=== PATIENT | female | born 1945 | race Caucasian/White ===

== ENCOUNTER → 2016-09-08 | Outpatient (CLI) | payer OTHER ==
[~2016-09-08] MED LIST: LXPUNK; ZCRUNK
[2016-09-08 10:25] LABS: BASO % 1.8 %; BASO ABS # 0.07 K/uL (0-0.2); COMPLETE YES; HEMATOCRIT 43.7 % (37-47); LYMPH % 26.1 %; LYMPH ABS # 1.03 K/uL (1.2-3.4); MEAN CELL VOLUME 84.7 fL (80-100); MEAN CORPUSCULAR HEMOGLOBIN 27.5 pg (25-34); MEAN CORPUSCULAR HGB CONC 32.5 g/dl (32-36); MEAN PLATELET VOLUME 11.3 fL (7.4-10.4); MONO % 12.7 %; NEUT % 58.4 %; PLATELET COUNT 261 K/uL (130-400); RED BLOOD COUNT 5.16 M/uL (4.2-5.4); WHITE BLOOD COUNT 3.94 K/uL (4.8-10.8)
[2016-09-08 10:45] LABS: ALT/SGPT 30 U/L (12-78); AST/SGOT 17 U/L (15-37); BLOOD UREA NITROGEN 8 mg/dl (7-18); BUN/CREATININE RATIO 11.2 (10-20); CALCIUM 9.5 mg/dl (8.5-10.1); CARBON DIOXIDE 28 mmol/L (21-32); CHLORIDE 105 mmol/L (98-107); CHOLESTEROL 146 mg/dl (0-200); CREATININE 0.68 mg/dl (0.60-1.20); GLUCOSE 95 mg/dl (70-99); POTASSIUM 3.8 mmol/L (3.5-5.1); SODIUM 139 mmol/L (136-145)
[2016-09-08 10:55] LABS: ALB/GLOB RATIO 1.2 (0.9-2); ALKALINE PHOSPHATASE 53 U/L (45-117); CHOLESTEROL/HDL RATIO 2.9; HDL CHOLESTEROL 50 mg/dl; LDL CHOLESTEROL CALCULATED 80 mg/dl; TRIGLYCERIDES 82 mg/dl (0-150); VERY LOW DENSITY LIPOPROT CALC 16 mg/dl
== END | disposition home or self-care (01) ==
LOC: C.LABBC 08:20
PROVIDERS: ATTEND Internal Medicine Geriatric Medicine
DX: K58.9 Irritable bowel syndrome, unspecified (principal); I10 Essential (primary) hypertension; M81.0 Age-related osteoporosis without current pathological fracture; E78.5 Hyperlipidemia, unspecified; R51 Headache

== ENCOUNTER → 2016-09-19 | Outpatient (CLI) | payer OTHER | END | disposition home or self-care (01) | LOC: C.MAMM 07:54 | PROVIDERS: ATTEND Internal Medicine Geriatric Medicine | DX: M81.0 Age-related osteoporosis without current pathological fracture (principal) ==

== ENCOUNTER → 2016-12-12 | Outpatient (CLI) | payer OTHER ==
--- NOTE | 2016-12-13 08:13 | MAMMOGRAPHY REPORT ---
BILATERAL DIGITAL SCREENING MAMMOGRAM WITH CAD: 12/12/2016 CLINICAL HISTORY: Routine screening. Patient has no complaints. TECHNIQUE: Bilateral CC, MLO and repeat right MLO views were obtained. Current study was also evalu ated with a Computer Aided Detection (CAD) system. COMPARISON: Comparison is made to exams dated: 12/08/2015 mammogram, 12/04/2014 mammogram, 12/03/2013 m ammogram, 12/02/2012 mammogram, 10/02/2011 mammogram, and 09/28/2010 mammogram - [facility] enter. BREAST COMPOSITION: There are scattered areas of fibroglandular density in both breasts. FINDINGS: No suspicious mass, architectural distortion or cluster of microcalcifications is seen. IMPRESSION: ACR BI-RADS CATEGORY 1: NEGATIVE There is no mammographic evidence of malignancy. A 1 year screening mammogram is recommended. The pa tient will receive written notification of the results. Approximately 10% of breast cancers are not detected with mammography. A negative mammographic report should not delay biopsy if a clinically suggestive mass is present. Antonina Crandall M.D. ay/:12/12/2016 15:56:27 Environmental [employer]: Sujata STILL(R)(M)(BD), [facility] letter sent: Normal 1/2 BI-RADS Code: ACR BI-RADS Category 1: Negative
== END | disposition home or self-care (01) ==
LOC: C.MAMM 09:39
PROVIDERS: ATTEND Internal Medicine Geriatric Medicine
DX: Z12.31 Encounter for screening mammogram for malignant neoplasm of breast (principal)

== ENCOUNTER → 2017-04-30 | Day surgery (SDC) | payer OTHER ==
[2017-04-19 07:50] VITALS: BMI 22.0
[~2017-04-30] VITALS: Ht 165.1 cm; Wt 61.4 kg
[~2017-04-30] MED LIST changes: +ALUMSUS2 PO; +DORZ2SOL20 OPB; +LATA0.5S OPB; +LIDOCAINE HCL 2% 2 ML VIAL (20MG/ML) ONE; +LISI20TA3 PO; -LXPUNK; +MULT-506 PO; +PROPOFOL IV EMULSION 10 MG/ML 20 ML VIAL IV ONE; +SENNTAB23 PO; +SIMV40TA4 PO; +SODIUM CHLORIDE 0.9% 500ML 500 ML IV ONE; +TPRSR/25 PO; -ZCRUNK
[2017-04-30 11:20] VITALS: Ht 165.1 cm; Wt 61.4 kg
--- NOTE | 2017-04-30 12:13 | Endo History and Physical ---
History & Physical Date of Service: Apr 30, 2017. Chief Complaint: CONSTIPATION AND RECTAL BLEEDING Referring Physician: DR Pj SHAY History of Present Illness 72 yo CF who presents for colonoscopy secondary to rectal bleeding. Past Surgical History Hx Cardiac Surgery: No Hx Internal Defibrillator: No Hx Pacemaker: No Hx Abdominal Surgery: Yes (TUBAL LIGATION) Hx of Implantable Prosthesis: No Hx Post-Op Nausea and Vomiting: No Hx Cancer Surgery: No Hx Thoracic Surgery: No Hx Orthopedic: No Hx Urinary Tract Surgery: No Family History None Social History Smoking Status: Never Smoker Hx Substance Use: No Hx Alcohol Use: No Allergies Coded Allergies: No Known Allergies (Unverified , 04/30/17) Current Medications Reported Home Medications Medications Dose Route/Sig Max Daily Dose Days Date Category Multivitamin (Multivitamins) Tab 1 Tab PO DAILY 04/19/17 Reported Stool Softener (Sennosides-Docusate Sodium) 1 Tab Tab 1 Tab PO BID 04/19/17 Reported Metoprolol Succinate ER (Metoprolol Succinate) 25 Mg Tabcr 1 Tab PO QAM 04/19/17 Reported Prinivil (Lisinopril) 20 Mg Tab 20 Mg PO QAM 04/19/17 Reported Zocor (Simvastatin) 40 Mg Tab 40 Mg PO QPM 04/19/17 Reported Xalatan 0.005% Oph Susan (Latanoprost) 0.005 % Susan 1 Drops OPB HS 04/19/17 Reported Cosopt Oph (Dorzolamide Hcl-Timolol Maleat) 1 Susan Susan 1 Drops OPB BID 04/19/17 Reported Vital Signs Weight (Kilograms): 61.36 Height (Feet): 5 Height (Inches): 5 Date Time Temp Pulse Resp B/P (MAP) Pulse Ox O2 Delivery O2 Flow Rate FiO2 04/30/17 11:28 36.4 72 18 205/84 (124) 100 Room Air Physical Exam General Appearance: WD/WN, no apparent distress Respiratory/Chest: Auscultation: breath sounds normal Cardiovascular: Heart Auscultation: RRR Abdomen: Bowel Sounds: normal Inspection & Palpation: soft, non-distended, no tenderness, guarding & rebound Assessment and Plan Assessment: 72 yo CF who presents for colonoscopy secondary to rectal bleeding. Plan: Proceed with colonoscopy.
--- NOTE | 2017-04-30 13:11 | GI REPORT ---
Procedure Date: 04/30/2017 12:37 PM Procedure: Colonoscopy Indications: Rectal bleeding Medicines: Monitored Anesthesia Care Complications: No immediate complications. Estimated Blood Loss: Estimated blood loss: none. Procedure: Pre-Anesthesia Assessment: - Prior to the procedure, a History and Physical was performed, and patient medications and allergies were reviewed. The patient's tolerance of previous anesthesia was also reviewed. The risks and benefits of the procedure and the sedation options and risks were discussed with the patient. All questions were answered, and informed consent was obtained. Prior Anticoagulants: The patient has taken no previous anticoagulant or antiplatelet agents. ASA Grade Assessment: II - A patient with mild systemic disease. After reviewing the risks and benefits, the patient was deemed in satisfactory condition to undergo the procedure. After I obtained informed consent, the scope was passed under direct vision. Throughout the procedure, the patient's blood pressure, pulse, and oxygen saturations were monitored continuously. The scope was introduced through the anus and advanced to the terminal ileum. The colonoscopy was performed without difficulty. The patient tolerated the procedure well. The quality of the bowel preparation was good. The ileocecal valve, appendiceal orifice, and rectum were photographed. Findings: The perianal and digital rectal examinations were normal. Multiple small-mouthed diverticula were found in the sigmoid colon. Non-bleeding internal hemorrhoids were found during retroflexion. The hemorrhoids were small. Impression: - Diverticulosis in the sigmoid colon. - Non-bleeding internal hemorrhoids. - No specimens collected. Recommendation: - Resume previous diet. - Continue present medications. - No repeat colonoscopy due to age and the absence of advanced adenomas. - Return to GI office as previously scheduled. Kurt Luna, 04/30/2017 1:10:59 PM This report has been signed electronically. Note Initiated On: 04/30/2017 12:37 PM I attest to the content of the Intraoperative Record and orders documented therein, exceptions below
[2017-04-30 13:36] VITALS: BP 163/68; PULSE 63; O2SAT 100
--- NOTE | 2017-04-30 13:45 | Anesthesiology Progress Note ---
Anesthesia Post Op Note Date & Time Apr 30, 2017 at 13:45 Vital Signs Pain Intensity: 0 Vital Signs Past 12 Hours Date Time Temp Pulse Resp B/P (MAP) Pulse Ox O2 Delivery O2 Flow Rate FiO2 04/30/17 13:36 63 20 163/68 (99) 100 Room Air 04/30/17 13:23 75 18 152/69 (96) 99 Room Air 04/30/17 13:06 72 12 119/58 (78) 100 Room Air 04/30/17 11:28 36.4 72 18 205/84 (124) 100 Room Air Notes Mental Status: alert / awake / arousable, participated in evaluation Pt Amnestic to Procedure: Yes Nausea / Vomiting: adequately controlled Pain: adequately controlled Airway Patency, RR, SpO2: stable & adequate BP & HR: stable & adequate Hydration State: stable & adequate Anesthetic Complications: no major complications apparent
--- NOTE | 2017-04-30 14:06 | Discharge Instructions ---
Endoscopy Patient Instructions Date / Procedure(s) Performed Apr 30, 2017. Colonoscopy Allergy Information Coded Allergies: No Known Allergies (Unverified , 04/30/17) Discharge Date / Findings Apr 30, 2017. Diverticulosis Internal hemorrhoids Medication Instructions Stopped Medication(s): MIRALAX AND STOOLSOFTNER OK to resume all medications today as prescribed Reported Home Medications Medications Dose Route/Sig Max Daily Dose Days Date Category Multivitamin (Multivitamins) Tab 1 Tab PO DAILY 04/19/17 Reported Stool Softener (Sennosides-Docusate Sodium) 1 Tab Tab 1 Tab PO BID 04/19/17 Reported Metoprolol Succinate ER (Metoprolol Succinate) 25 Mg Tabcr 1 Tab PO QAM 04/19/17 Reported Prinivil (Lisinopril) 20 Mg Tab 20 Mg PO QAM 04/19/17 Reported Zocor (Simvastatin) 40 Mg Tab 40 Mg PO QPM 04/19/17 Reported Xalatan 0.005% Oph Susan (Latanoprost) 0.005 % Susan 1 Drops OPB HS 04/19/17 Reported Cosopt Oph (Dorzolamide Hcl-Timolol Maleat) 1 Susan Susan 1 Drops OPB BID 04/19/17 Reported Provider Instructions Activity Restrictions - No exercising or heavy lifting for 24 hours. - Do not drink alcohol the day of the procedure. - Do not drive a car or operate machinery until the day after the procedure. - Do not make any important decisions or sign important papers in 24 hours after the procedure. Following Day: - Return to full activity which may include returning to work/school. Diet Start your diet with liquids and light foods (jello, soup, juice, toast). Then eat your usual diet if not nauseated. Treatment For Common After Affects For mild abdominal pain, bloating, or excessive gas: - Rest - Eat lightly - Lie on right side Follow-Up Information Follow-up with DR Pj SHAY as scheduled Anesthesia Information What You Should Know You have had a procedure that required some medicine to reduce anxiety and discomfort. This treatment is called moderate sedation. After receiving the treatment, you may be sleepy, but you will be able to breathe on your own. The effects of the treatment may last for several hours. Follow these instructions along with Activity/Diet recommendations noted above: * Do NOT do anything where dizziness or clumsiness would be dangerous. * Rest quietly at home today, then you can be up and about tomorrow. * Have a responsible person stay with you the rest of today. * You may have had an I.V. today. If so, you may take the dressing off later today. Recommendations Call your doctor if: * Trouble breathing * Continuous vomiting for more than 24 hours * Temperature above 101 degrees * Severe abdominal pain or bloating * Pain not relieved by pain medicine ordered * There is increased drainage or redness from any incision * A large amount of rectal bleeding greater than 2-3 tablespoons. (If you had a polyp/s removed or have hemorrhoids, a small amount of blood - from the rectum is to be expected.) * You have any unanswered questions or concerns. IN THE EVENT OF A SERIOUS EMERGENCY, GO TO THE NEAREST EMERGENCY ROOM Your discharge instructions were prepared by provider Kurt Luna. Patient Instructions Signature Page Yaquelin Haddad Patient (or Guardian) Signature/Date: I have read and understand the instructions given to me by my caregivers. Caregiver/RN/Doctor Signature/Date: The above-named patient and/or guardian has received patient instructions on this date. + Original Patient Signature Page (only) stays with chart. Please make copy for patient.
== END | disposition home or self-care (01) ==
LOC: C.GI 11:11
PROVIDERS: ATTEND Internal Medicine
DX: K62.5 Hemorrhage of anus and rectum (principal); K59.00 Constipation, unspecified; I10 Essential (primary) hypertension; K57.30 Diverticulosis of large intestine without perforation or abscess without bleeding; K64.8 Other hemorrhoids; Z98.51 Tubal ligation status; Z79.899 Other long term (current) drug therapy; Z90.89 Acquired absence of other organs

== ENCOUNTER → 2017-10-08 | Outpatient (CLI) | payer OTHER ==
[~2017-10-08] MED LIST changes: -ALUMSUS2 PO; -LIDOCAINE HCL 2% 2 ML VIAL (20MG/ML) ONE; -PROPOFOL IV EMULSION 10 MG/ML 20 ML VIAL IV ONE; -SODIUM CHLORIDE 0.9% 500ML 500 ML IV ONE
[2017-10-08 11:16] LABS: BASO % 1.1 %; BASO ABS # 0.05 K/uL (0-0.2); EOS % 2.5 %; EOS ABS # 0.11 K/uL (0-0.5); HEMOGLOBIN 14.5 g/dL (12.0-16.0); IG# 0.01 K/uL (0.00-0.02); LYMPH % 25.7 %; LYMPH ABS # 1.14 K/uL (1.2-3.4); MEAN CELL VOLUME 85.7 fL (80-100); MEAN CORPUSCULAR HEMOGLOBIN 27.6 pg (25-34); MEAN CORPUSCULAR HGB CONC 32.2 g/dl (32-36); MONO % 10.1 %; MONO ABS # 0.45 K/uL (0.11-0.59); NEUT % 60.4 %; NEUT ABS # 2.68 K/uL (1.4-6.5); PLATELET COUNT 278 K/uL (130-400); RED CELL DISTRIBUTION WIDTH CV 13.7 % (11.5-14.5); RED CELL DISTRIBUTION WIDTH SD 42.5 fL (36.4-46.3); WHITE BLOOD COUNT 4.44 K/uL (4.8-10.8)
[2017-10-08 11:40] LABS: ALBUMIN 3.8 gm/dl (3.4-5.0); ALKALINE PHOSPHATASE 69 U/L (45-117); ALT/SGPT 26 U/L (12-78); AST/SGOT 17 U/L (15-37); BLOOD UREA NITROGEN 7 mg/dl (7-18); CALCIUM 9.4 mg/dl (8.5-10.1); CARBON DIOXIDE 30 mmol/L (21-32); CHOLESTEROL 158 mg/dl (0-200); CREATININE 0.68 mg/dl (0.60-1.20); GLUCOSE 96 mg/dl (70-99); LDL CHOLESTEROL CALCULATED 87 mg/dl; POTASSIUM 4.1 mmol/L (3.5-5.1); SODIUM 137 mmol/L (136-145); TOTAL PROTEIN 7.2 gm/dl (6.4-8.2)
== END | disposition home or self-care (01) ==
LOC: C.LABBC 08:48
PROVIDERS: ATTEND Internal Medicine Geriatric Medicine
DX: I10 Essential (primary) hypertension (principal); M81.0 Age-related osteoporosis without current pathological fracture; E78.5 Hyperlipidemia, unspecified; R51 Headache

== ENCOUNTER 2023-09-02 21:38 | Inpatient (IN) ==
--- NOTE | 2023-09-02 22:09 | Emergency Department Note ---
Impression & Plan UTI (urinary tract infection), Mixed Alzheimer's and vascular dementia, Agitation ED Provider Note NAME: MARE HENDERSON AGE: 78 SEX: F : 1945 ARRIVES VIA: Ambulance INFORMANT: Patient ED PROVIDER(S): Que Sun DO CHIEF COMPLAINT: Agitation HPI: Patient is a 78-year-old female with a past medical history of mixed Alzheimer's and vascular dementia, hypertension, depression, anxiety and dyslipidemia that presents to the ER from [facility]. She was just discharged yesterday from [facility] to [facility]. They sent her in here to be evaluated as she had an episode of agitation. She never received her medications upon being discharged from [facility]. She presents again today as she had to be redirected out of the patient's room and was agitated. Upon presentation of EMS per EMS she got on the stretcher/litter without difficulty and came in without issues. Unfortunately unable to obtain history from patient. She denies any suicidal or homicidal ideations. ADDITIONAL HISTORY OBTAINED: Additional history obtained from EMS as described above Chronic Medical/Social Conditions Affecting Care: Per HPI PAST MEDICAL HISTORY:See Below PAST SURGICAL HISTORY:See Below FAMILY HISTORY:See Below SOCIAL HISTORY:See Below HOME MEDICATIONS:See Below ALLERGIES:See Below VITALS:See Below PHYSICAL EXAMINATION: GENERAL: Sitting up in bed, alert, well appearing, well nourished, no distress, non-toxic EYE EXAM: normal conjunctiva. PERRL and EOM's grossly intact. OROPHARYNX: no exudate, no erythema, lips, buccal mucosa, and tongue normal and mucous membranes are moist NECK: supple, no nuchal rigidity, no adenopathy, non-tender LUNGS: Clear to auscultation. Normal chest wall mechanics HEART: no murmurs, S1 normal and S2 normal ABDOMEN: abdomen soft, non-tender, normo-active bowel sounds, no masses, no rebound or guarding. UPPER EXTREMITIES: upper extremities are grossly normal. LOWER EXTREMITIES: No pitting edema. NEURO EXAM: Awake and alert oriented to person but not place or time moving all extremities nonfocal PSYCH: Denies any suicidal or homicidal ideations. MEDICAL DECISION MAKING: Patient is a 78-year-old female who presents ER for the above-stated complaint. They have been having significant difficulty with the care at [facility]. [facility] sent the patient here and notes that they are not taking the patient back. Per report from the patient's daughter they have been negligent and she does not want the patient going back to [facility]. IV was established blood work was obtained. Labs show no significant leukocytosis or anemia. BMP along with LFTs bilirubin TSH was unremarkable. UA did have leukocytes and white cells with only 6-10 epithelial cells. Patient was not agitated or disruptive throughout her entire time in the ER. She was given IV Rocephin. Discussed case with the hospitalist as well as our psychiatric care managers patient will be admitted for further placement from here. Consults/Care Managements Discussions: Per MDM Triage Nursing notes reviewed. Limited review of prior medical records performed Vital Signs: reviewed and remarkable for no significant abnormalities Differential diagnosis: Differential diagnoses includes but is not limited to toxic, metabolic, infectious, traumatic, cardiac, neurologic, hematologic, psychiatric and inflammatory etiologies. ER treatment provided: See below Diagnostics interpreted by me include EKG and cardiac monitoring as listed below: -ECG: none -Laboratory studies:Interpreted by me as stated above in MDM and shown below. Imaging studies: Xrays: As interpreted by me:none CTs show: none Procedures:none Critical Care: None Past Med/Surg History Problem List (Updated 09/03/23 @ 01:54 by Que Sun DO) Agitation (Acute) UTI (urinary tract infection) (Acute) Mixed Alzheimer's and vascular dementia (Acute) Hypertension (Acute) Depression Anxiety (Acute) Hypercalcemia Dyslipidemia (Acute) Osteoporosis (Acute) Medical History (Updated 09/03/23 @ 01:54 by Que Sun DO) Hx of cardiac pacemaker Tinnitus Positional vertigo Irritable bowel syndrome Internal hemorrhoids Headache Glaucoma Diverticulosis Surgical History History of colonoscopy 04/30/2017 - no further routine screening necessary due to age S/P tubal ligation Family History Father Coronary heart disease Dyslipidemia Stroke Congestive heart failure History of permanent cardiac pacemaker placement Mother Stroke Sister Parkinson disease Unknown Cerebral artery occlusion with cerebral infarction Aunt Parkinson disease Denies family history of Ovarian cancer Prostate cancer Breast cancer Lung cancer Colorectal cancer Social History Smoking Status: Never smoker Second Hand Exposure: No; Do You Dip or Chew Tobacco: No; Hx Alcohol Use: Yes Alcohol type: wine Alcohol Intake Frequency: Monthly or Less Hx Substance Use: No Preferred Language: Arabic Communication Ability: Effective Visual Impairment: Limited Hearing Ability: Normal Cleaner And Presser Required: No marital status: / Current Living Situation: Alone current occupational status: retired How many Children do You have: 2 Feels Safe at Home: Yes Childhood Exposure to Second-Hand Smoke: No caffeine: Yes (drinks coffee daily ) Dental Care, Regularly: Yes Physical Activity Frequency: 3-4 Times per Week Physical Activity Frequency Comment: walks Seatbelt Use: always Sunscreen Use: No (does not go outside) Allergies Allergies Allergy/AdvReac Type Severity Reaction Status Date / Time paroxetine [From Paxil] Allergy Verified 03/15/23 10:26 Home Meds Home Medications Medication Instructions Recorded Confirmed latanoprost 0.005 % eye drops 1 drops ophthalmic (eye) QPM 09/17/18 09/03/23 multivitamin (Daily Multi-Vitamin 1 tab PO DAILY 09/17/18 09/03/23 tablet) bisacodyl 10 mg rectal suppository 10 mg WI DAILY PRN Constipation 09/01/23 09/03/23 cyanocobalamin (vitamin B-12) 1,000 mcg PO DAILY 09/01/23 09/03/23 1,000 mcg tablet polyethylene glycol 3350 17 gram 17 g PO DAILY 09/01/23 09/03/23 oral powder packet Previous Rx's Medication Instructions Recorded simvastatin 40 mg tablet 40 mg PO DAILY #90 tabs 02/27/23 brimonidine 0.2 % eye drops 1 drp ophthalmic (eye) BID #5 mL 03/15/23 aspirin 81 mg tablet,delayed 81 mg PO DAILY #7 tabs 09/01/23 release (Adult Low Dose Aspirin) atorvastatin 20 mg tablet 20 mg PO HS #7 tabs 09/01/23 docusate sodium 100 mg capsule 100 mg PO BID #14 caps 09/01/23 donepezil 5 mg tablet 5 mg PO HS #7 tabs 09/01/23 escitalopram oxalate 10 mg tablet 10 mg PO DAILY #7 tabs 09/01/23 lisinopril 20 mg tablet 20 mg PO DAILY #7 tabs 09/01/23 metoprolol succinate 25 mg 25 mg PO DAILY #7 tabs 09/01/23 tablet,extended release 24 hr quetiapine 25 mg tablet 25 mg PO QDL #7 tabs 09/01/23 quetiapine 25 mg tablet (Seroquel) 25 mg PO BID PRN Anxiety #14 tabs 09/01/23 quetiapine 50 mg tablet 50 mg PO HS #7 tabs 09/01/23 trazodone 50 mg tablet 50 mg PO HS #7 tabs 09/01/23 Results & Data (ED) Vital Signs Vital Signs - 24 hr 09/02/23 21:52 09/02/23 21:52 Temperature 36.5 C 36.5 C Temperature Source Oral Oral Pulse Rate 83 Pulse Rate [Finger] 83 Pulse Rhythm Regular Pulse Rhythm [Finger] Regular Pulse Strength Normal Respiratory Rate 19 19 Respiratory Effort / Characteristics Non-Labored Non-Labored Respiratory Depth Normal Normal Respiratory Pattern Regular Blood Pressure 137/62 Blood Pressure [Left Arm] 137/62 Blood Pressure Mean 87 Blood Pressure Mean [Left Arm] 87 Pulse Oximetry 94 94 Oxygen Delivery Method Room Air Room Air Sepsis Recent Fever Within 48 Hours No Sepsis New/Unexplained Change in Mental Status No Sepsis Action Taken by Nursing No Action Required Laboratory Data 09/02/23 22:20 09/02/23 22:20 Lab Results 09/02/23 09/02/23 Range/Units 22:16 22:20 WBC 7.72 (4.8-10.8) K/ul RBC 4.96 (4.20-5.40) M/uL Hgb 13.7 (12.0-16.0) g/dl Hct 42.0 (37.0-47.0) % MCV 84.7 (80.0-100.0) fL MCH 27.6 (25.0-34.0) pg MCHC 32.6 (32.0-36.0) g/dL RDW Std Deviation 41.6 (36.4-46.3) fL RDW Coeff of Paulina 13.3 (11.5-14.5) % Plt Count 254 (130-400) K/uL MPV 10.0 (9.4-12.4) fL Immature Gran % (Auto) 0.4 % Neut % (Auto) 76.5 % Lymph % (Auto) 14.9 % Levy % (Auto) 7.0 % Eos % (Auto) 0.6 % Baso % (Auto) 0.6 % Neut # (Auto) 5.90 (1.40-6.50) K/uL Lymph # (Auto) 1.15 L (1.20-3.40) K/uL Levy # (Auto) 0.54 (0.11-0.59) K/uL Eos # (Auto) 0.05 (0.00-0.50) K/uL Baso # (Auto) 0.05 (0.00-0.20) K/uL Immature Gran # (Auto) 0.03 (0.01-0.20) K/uL Sodium 133 L (136-145) mmol/L Potassium 3.9 (3.5-5.1) mmol/L Chloride 105 (98-107) mmol/L Carbon Dioxide 23 (21-32) mmol/L Anion Gap 5 (3-11) BUN 16 (6-23) mg/dl Creatinine 0.71 (0.6-1.2) mg/dl Est Cr Clr Drug Dosing Not Reportable Est GFR ( Amer) 94.6 ml/min Est GFR (Non-Af Amer) 81.6 ml/min BUN/Creatinine Ratio 22.5 H (10-20) Glucose 153 H (70-99(Fasting)) mg/dl Calcium 9.5 (8.6-10.3) mg/dl Total Bilirubin 0.4 (0.2-1.0) mg/dl AST 17 (13-39) U/L ALT 17 (7-52) U/L Alkaline Phosphatase 71 (34-104) U/L Total Protein 6.2 (6.0-8.3) gm/dl Albumin 4.1 (3.4-5.0) gm/dl Globulin 2.1 L (2.5-4.0) gm/dl Albumin/Globulin Ratio 2.0 (0.9-2) TSH 1.846 (0.300-4.500) uIu/ml Urine Color Yellow Urine Appearance Clear (Clear) Urine pH 5.5 (4.5-7.5) Ur Specific [place] 1.026 (1.000-1.030) Urine Protein Trace H (Negative) Urine Glucose (UA) Negative (Negative) Urine Ketones Negative (Negative) Urine Blood Negative (Negative) Urine Nitrite Negative (Negative) Urine Bilirubin Negative (Negative) Urine Urobilinogen Negative (Negative) Ur Leukocyte Esterase 2+ H (Negative) Urine WBC (Auto) 21-50 H (0-5) /hpf Urine RBC (Auto) 0-2 (0-2) /hpf U Hyaline Cast (Auto) 3-5 H (0-2) /lpf U Epithel Cells (Auto) 6-10 H (0-2) /hpf Urine Bacteria (Auto) None Seen (None Seen) Salicylates < 3.0 L (3.0-30) mg/dl Urine Opiates Screen Neg (Neg) Ur Methadone, Qual Neg (Neg) Urine Fentanyl Screen Neg (Neg) Acetaminophen < 3 L (10-30) ug/ml Urine Barbiturates Neg (Neg) Ur Phencyclidine (PCP) Neg (Neg) U Amphetamin/Meth Scrn Neg (Neg) MDMA (Ecstasy) Screen Pos H (Neg) U Benzodiazepines Scrn Neg (Neg) Ur Cocaine Metabolite Neg (Neg) U Marijuana (THC) Screen Neg (Neg) Ethyl Alcohol mg/dL < 10.0 (<10.0) mg/dl Administered Medications Discontinued Medications Ceftriaxone Sodium (Rocephin) 2,000 mg in 50 mls @ 100 mls/hr IV NOW STA Stop: 09/03/23 00:56 Last Infusion: 09/03/23 01:16 Dose: Infused Documented By: Admin: 09/03/23 00:41 Dose: 100 mls/hr Documented By: MARI Discharge Plan Visit Data Chief Complaint: Mental Health Evaluation Stated Complaint: COMBATIVE, KICKING, BITING, WANTS PSYCH EVAL ED Provider: Que Sun Discharge Problem: UTI (urinary tract infection), Mixed Alzheimer's and vascular dementia, Agitation Forms Stand Alone Forms: My [facility], Suicide Prevention Resources Prescriptions Prescriptions: No Action simvastatin 40 mg tablet 40 mg PO DAILY Qty: 90 3RF brimonidine 0.2 % drops 1 drp ophthalmic (eye) BID Qty: 5 3RF Rx Instructions: one drop both eyes twice a day latanoprost 0.005 % drops 1 drops OP QPM Rx Instructions: one drop both eyes every evening multivitamin [Daily Multi-Vitamin] tablet 1 tab PO DAILY atorvastatin 20 mg Tablet 20 mg PO HS Qty: 7 0RF escitalopram oxalate 10 mg Tablet 10 mg PO DAILY Qty: 7 0RF aspirin [Adult Low Dose Aspirin] 81 mg Tablet,Delayed Release (Dr/Ec) 81 mg PO DAILY Qty: 7 0RF docusate sodium 100 mg Capsule 100 mg PO BID Qty: 14 0RF donepezil 5 mg Tablet 5 mg PO HS Qty: 7 0RF lisinopril 20 mg Tablet 20 mg PO DAILY Qty: 7 0RF quetiapine 25 mg Tablet 25 mg PO QDL Qty: 7 0RF quetiapine 50 mg Tablet 50 mg PO HS Qty: 7 0RF Rx Instructions: GIVE IN ADDITION TO 25 MG AT LUNCH quetiapine [Seroquel] 25 mg Tablet 25 mg PO BID PRN (Reason: Anxiety) Qty: 14 0RF trazodone 50 mg Tablet 50 mg PO HS Qty: 7 0RF metoprolol succinate 25 mg Tablet Extended Release 24 Hr 25 mg PO DAILY Qty: 7 0RF polyethylene glycol 3350 17 gram Powder In Packet 17 g PO DAILY cyanocobalamin (vitamin B-12) 1,000 mcg Tablet 1,000 mcg PO DAILY bisacodyl 10 mg Suppository 10 mg WI DAILY PRN (Reason: Constipation) Referrals Referrals: Benjamin Gomez DO [Primary Care Provider] - Discharge Problem: UTI (urinary tract infection) Qualifiers: Urinary tract infection type: acute cystitis Hematuria presence: without hematuria Qualified Code(s): N30.00 - Acute cystitis without hematuria
[2023-09-02 22:49] LABS: Basophils # (auto) 0.05 K/uL (0.00-0.20); Basophils % (auto) 0.6 %; Eosinophils # (auto) 0.05 K/uL (0.00-0.50); Eosinophils % (auto) 0.6 %; Hemoglobin 13.7 g/dl (12.0-16.0); Immature Granulocytes # (auto) 0.03 K/uL (0.01-0.20); Immature Granulocytes % (auto) 0.4 %; Lymphocytes # (auto) 1.15 K/uL (1.20-3.40); Lymphocytes % (auto) 14.9 %; Mean Corpuscular Hemoglobin 27.6 pg (25.0-34.0); Mean Corpuscular Hgb Conc 32.6 g/dL (32.0-36.0); Mean Corpuscular Volume 84.7 fL (80.0-100.0); Monocytes # (auto) 0.54 K/uL (0.11-0.59); Neutrophils % (auto) 76.5 %; Platelet Count 254 K/uL (130-400); RDW Coefficient of Variation 13.3 % (11.5-14.5); RDW Standard Deviation 41.6 fL (36.4-46.3); Red Blood Count 4.96 M/uL (4.20-5.40); White Blood Count 7.72 K/ul (4.8-10.8)
[2023-09-02 22:50] LABS: Appearance Urine Clear (Clear); Bacteria Urine Automated None Seen (None Seen); Bilirubin Urine Negative (Negative); Blood Urine Negative (Negative); Color Urine Yellow; Glucose Urine UA Negative (Negative); Ketones Urine Negative (Negative); Leukocyte Esterase Urine 2+ (Negative); Nitrite Urine Negative (Negative); Protein Urine Trace (Negative); RBC Urine Automated 0-2 /hpf (0-2); Specific Gravity Urine 1.026 (1.000-1.030); Urobilinogen Urine Negative (Negative); WBC Urine Automated 21-50 /hpf (0-5); pH Urine 5.5 (4.5-7.5)
[2023-09-02 22:56] LABS: Acetaminophen < 3 ug/ml (10-30); Salicylate < 3.0 mg/dl (3.0-30)
[2023-09-02 23:00] LABS: Alanine Aminotransferase 17 U/L (7-52); Albumin Level 4.1 gm/dl (3.4-5.0); Alkaline Phosphatase 71 U/L (34-104); Anion Gap 5 (3-11); Aspartate Aminotransferase 17 U/L (13-39); BUN Creatinine Ratio 22.5 (10-20); Bilirubin,Total 0.4 mg/dl (0.2-1.0); Blood Urea Nitrogen 16 mg/dl (6-23); Calcium 9.5 mg/dl (8.6-10.3); Carbon Dioxide 23 mmol/L (21-32); Chloride 105 mmol/L (98-107); Est GFR (African American) 94.6 ml/min; Est GFR (Non-African American) 81.6 ml/min; Globulin 2.1 gm/dl (2.5-4.0); Glucose 153 mg/dl (70-99(Fasting)); Potassium 3.9 mmol/L (3.5-5.1); Sodium 133 mmol/L (136-145); Total Protein 6.2 gm/dl (6.0-8.3)
[2023-09-02 23:15] LABS: Thyroid Stimulating Hormone 1.846 uIu/ml (0.300-4.500)
[2023-09-03 00:04] LABS: Amphetamines+Metham, Urine Neg (Neg); Barbiturates, Urine Neg (Neg); Benzodiazepine, Urine Neg (Neg); Cocaine, Urine Neg (Neg); Fentanyl, Urine Neg (Neg); MDMA (Ecstacy), Urine Pos (Neg); Marijuana, Urine Neg (Neg); Methadone, Urine Neg (Neg); Opiate, Urine Neg (Neg); Phencyclidine, Urine Neg (Neg)
[2023-09-03] MEDS: cefTRIAXone SODIUM 2,000 MG/50 ML BAG IV STA (00:41)
--- NOTE | 2023-09-03 00:49 | History & Physical Report ---
Date of Service September 03, 2023 Assessment & Plan (1) Agitation: (2) Mixed Alzheimer's and vascular dementia: (3) UTI (urinary tract infection): (4) Hypertension: (5) Depression: (6) Anxiety: Plan Agitation/mixed Alzheimer's and vascular dementia/depression/anxiety- Patient had been transferred from an inpatient facility in [place], to [facility] in [place]. Daughter reports that there was difficulty coordinating medications from [place] to local pharmacy to [facility] It is unclear at this time when patient received her last dose of medications, and ED reports that attempts to contact [facility] were not successful Patient reportedly was wandering into another patient's room at [facility], and when redirected, became agitated, and she was then sent to the ED for assessment In emergency department, patient is not agitated, resting comfortably, and it is reported that [facility] is unwilling to accept the patient back. [facility] She is resting comfortably at this point, and we will hold any of her listed psychiatric medications until assessed by psychiatry in the a.m., unless there is an acute change in her status overnight List of medications include: Seroquel, escitalopram, donepezil, and trazodone Urinary tract infection- Urine looks to be positive for infection Follow urine culture and sensitivity Continue ceftriaxone 2 g IV daily begun in the ED Hyperlipidemia- Continue atorvastatin Simvastatin is also listed on her medication list, but will not be continued History of Present Illness Chief Complaint: The patient is brought to the emergency department due to reported agitation when she was redirected from a patient's room at [facility], and daughter's c oncerns regarding need for a new placement facility Primary Care Provider: Benjamin Gomez DO The patient is a 78-year-old female with a past medical history including agitation, mixed Alzheimer's and vascular dementia, hypertension, depression, anxiety, dyslipidemia, glaucoma, B12 deficiency and osteoporosis. She had rece ntly been referred from a facility in [place], to [facility] in [place], and was noted as above to be agitated when she was redirected from wandering into another patient's room. Daughter's concerns are related to appropriateness of [facility] for her mother's level of care needed, and wishes for the patient to be placed at another facility. There was difficulty obtaining the patient's medications when she was transferred from [place] to [facility], and it is unclear at this time when she has taken her listed medications Allergies Allergy/AdvReac Type Severity Reaction Status Date / Time paroxetine [From Paxil] Allergy Verified 03/15/23 10:26 Home Medications Medication Instructions Recorded Confirmed Type latanoprost 0.005 % eye drops 1 drops ophthalmic (eye) QPM 09/17/18 09/03/23 History multivitamin (Daily Multi-Vitamin 1 tab PO DAILY 09/17/18 09/03/23 History tablet) simvastatin 40 mg tablet 40 mg PO DAILY #90 tabs 02/27/23 09/01/23 Rx brimonidine 0.2 % eye drops 1 drp ophthalmic (eye) BID #5 mL 03/15/23 09/03/23 Rx aspirin 81 mg tablet,delayed 81 mg PO DAILY #7 tabs 09/01/23 09/03/23 Rx release (Adult Low Dose Aspirin) atorvastatin 20 mg tablet 20 mg PO HS #7 tabs 09/01/23 09/03/23 Rx bisacodyl 10 mg rectal suppository 10 mg [place] DAILY PRN Constipation 09/01/23 09/03/23 History cyanocobalamin (vitamin B-12) 1,000 mcg PO DAILY 09/01/23 09/03/23 History 1,000 mcg tablet docusate sodium 100 mg capsule 100 mg PO BID #14 caps 09/01/23 09/03/23 Rx donepezil 5 mg tablet 5 mg PO HS #7 tabs 09/01/23 09/03/23 Rx escitalopram oxalate 10 mg tablet 10 mg PO DAILY #7 tabs 09/01/23 09/03/23 Rx lisinopril 20 mg tablet 20 mg PO DAILY #7 tabs 09/01/23 09/03/23 Rx metoprolol succinate 25 mg 25 mg PO DAILY #7 tabs 09/01/23 09/03/23 Rx tablet,extended release 24 hr polyethylene glycol 3350 17 gram 17 g PO DAILY 09/01/23 09/03/23 History oral powder packet quetiapine 25 mg tablet 25 mg PO QDL #7 tabs 09/01/23 09/03/23 Rx quetiapine 25 mg tablet (Seroquel) 25 mg PO BID PRN Anxiety #14 tabs 09/01/23 09/03/23 Rx quetiapine 50 mg tablet 50 mg PO HS #7 tabs 09/01/23 09/03/23 Rx trazodone 50 mg tablet 50 mg PO HS #7 tabs 09/01/23 09/03/23 Rx Past Med/Surg History Problem List (Updated 09/03/23 @ 01:54 by Que Sun DO) Agitation (Acute) UTI (urinary tract infection) (Acute) Mixed Alzheimer's and vascular dementia (Acute) Hypertension (Acute) Depression Anxiety (Acute) Hypercalcemia Dyslipidemia (Acute) Osteoporosis (Acute) Medical History (Updated 09/03/23 @ 01:54 by Que Sun DO) Hx of cardiac pacemaker Tinnitus Positional vertigo Irritable bowel syndrome Internal hemorrhoids Headache Glaucoma Diverticulosis Surgical History History of colonoscopy 04/30/2017 - no further routine screening necessary due to age S/P tubal ligation Family History Father Coronary heart disease Dyslipidemia Stroke Congestive heart failure History of permanent cardiac pacemaker placement Mother Stroke Sister Parkinson disease Unknown Cerebral artery occlusion with cerebral infarction Aunt Parkinson disease Denies family history of Ovarian cancer Prostate cancer Breast cancer Lung cancer Colorectal cancer Social History Smoking Status: Never smoker Second Hand Exposure: No; Do You Dip or Chew Tobacco: No; Hx Alcohol Use: Yes Alcohol type: wine Alcohol Intake Frequency: Monthly or Less Hx Substance Use: No Preferred Language: Romanian Communication Ability: Effective Visual Impairment: Limited Hearing Ability: Normal Biller Required: No marital status: / Current Living Situation: Alone current occupational status: retired How many Children do You have: 2 Feels Safe at Home: Yes Childhood Exposure to Second-Hand Smoke: No caffeine: Yes (drinks coffee daily ) Dental Care, Regularly: Yes Physical Activity Frequency: 3-4 Times per Week Physical Activity Frequency Comment: walks Seatbelt Use: always Sunscreen Use: No (does not go outside) Review of Systems Review of Systems: HPI and review of systems is provided by the patient's daughter, who is in the emergency department and by emergency department record review Physical Exam Physical Exam: The patient is awake, and attempts to respond to questions, well developed and well nourished, normocephalic and atraumatic, lying in bed and in no acute distress. HEENT--PERRL, EOMI, mucous membranes and oropharynx normal. Neck--supple. No JVD. No bruits. Thyroid normal, trachea midline, no adenopathy. Heart--normal S1 and S2. No murmurs, rubs or gallops. Lungs--clear bilaterally, no respiratory distress, no accessory muscle use. Abdomen--normal bowel sounds and soft. Nontender. Nondistended, no hernias or masses, no organomegaly. Extremities--no cyanosis or clubbing. No edema. There are good distal pulses b/l. Dermatologic--normal skin turgor, normal color, no abnormal lymph nodes, no rash. Neurologic--cranial nerves II through XII grossly intact. Rheumatologic--normal range of motion. Psychiatric--normal affect. Results & Data Results & Data Vital Signs (Past 12 Hours) Vital Signs Temp Pulse Pulse Resp BP BP Pulse Ox 09/02/23 21:52 36.5 C 83 19 137/62 94 09/02/23 21:52 36.5 C 83 19 137/62 94 O2 Del Method 09/02/23 21:52 Room Air 09/02/23 21:52 Room Air Laboratory Results Laboratory Results WBC 7.72 K/ul (4.8-10.8) 09/02/23 22:20 RBC 4.96 M/uL (4.20-5.40) 09/02/23 22:20 Hgb 13.7 g/dl (12.0-16.0) 09/02/23 22:20 Hct 42.0 % (37.0-47.0) 09/02/23 22:20 MCV 84.7 fL (80.0-100.0) 09/02/23 22:20 MCH 27.6 pg (25.0-34.0) 09/02/23 22:20 MCHC 32.6 g/dL (32.0-36.0) 09/02/23 22:20 RDW Std Deviation 41.6 fL (36.4-46.3) 09/02/23 22:20 RDW Coeff of Paulina 13.3 % (11.5-14.5) 09/02/23 22:20 Plt Count 254 K/uL (130-400) 09/02/23 22:20 MPV 10.0 fL (9.4-12.4) 09/02/23 22:20 Immature Gran % (Auto) 0.4 % 09/02/23 22:20 Neut % (Auto) 76.5 % 09/02/23 22:20 Lymph % (Auto) 14.9 % 09/02/23 22:20 [place] % (Auto) 7.0 % 09/02/23 22:20 Eos % (Auto) 0.6 % 09/02/23 22:20 Baso % (Auto) 0.6 % 09/02/23 22:20 Neut # (Auto) 5.90 K/uL (1.40-6.50) 09/02/23 22:20 Lymph # (Auto) 1.15 K/uL (1.20-3.40) L 09/02/23 22:20 [place] # (Auto) 0.54 K/uL (0.11-0.59) 09/02/23 22:20 Eos # (Auto) 0.05 K/uL (0.00-0.50) 09/02/23 22:20 Baso # (Auto) 0.05 K/uL (0.00-0.20) 09/02/23 22:20 Immature Gran # (Auto) 0.03 K/uL (0.01-0.20) 09/02/23 22:20 Sodium 133 mmol/L (136-145) L 09/02/23 22:20 Potassium 3.9 mmol/L (3.5-5.1) 09/02/23 22:20 Chloride 105 mmol/L (98-107) 09/02/23 22:20 Carbon Dioxide 23 mmol/L (21-32) 09/02/23 22:20 Anion Gap 5 (3-11) 09/02/23 22:20 BUN 16 mg/dl (6-23) 09/02/23 22:20 Creatinine 0.71 mg/dl (0.6-1.2) 09/02/23 22:20 Est Cr Clr Drug Dosing Not Reportable 09/02/23 22:20 Est GFR ( Amer) 94.6 ml/min 09/02/23 22:20 Est GFR (Non-Af Amer) 81.6 ml/min 09/02/23 22:20 BUN/Creatinine Ratio 22.5 (10-20) H 09/02/23 22:20 Glucose 153 mg/dl (70-99(Fasting)) H 09/02/23 22:20 Calcium 9.5 mg/dl (8.6-10.3) 09/02/23 22:20 Total Bilirubin 0.4 mg/dl (0.2-1.0) 09/02/23 22:20 AST 17 U/L (13-39) 09/02/23 22:20 ALT 17 U/L (7-52) 09/02/23 22:20 Alkaline Phosphatase 71 U/L (34-104) 09/02/23 22:20 Total Protein 6.2 gm/dl (6.0-8.3) 09/02/23 22:20 Albumin 4.1 gm/dl (3.4-5.0) 09/02/23 22:20 Globulin 2.1 gm/dl (2.5-4.0) L 09/02/23 22:20 Albumin/Globulin Ratio 2.0 (0.9-2) 09/02/23 22:20 TSH 1.846 uIu/ml (0.300-4.500) 09/02/23 22:20 Urine Color Yellow 09/02/23 22:16 Urine Appearance Clear (Clear) 09/02/23 22:16 Urine pH 5.5 (4.5-7.5) 09/02/23 22:16 Ur Specific [place] 1.026 (1.000-1.030) 09/02/23 22:16 Urine Protein Trace (Negative) H 09/02/23 22:16 Urine Glucose (UA) Negative (Negative) 09/02/23 22:16 Urine Ketones Negative (Negative) 09/02/23 22:16 Urine Blood Negative (Negative) 09/02/23 22:16 Urine Nitrite Negative (Negative) 09/02/23 22:16 Urine Bilirubin Negative (Negative) 09/02/23 22:16 Urine Urobilinogen Negative (Negative) 09/02/23 22:16 Ur Leukocyte Esterase 2+ (Negative) H 09/02/23 22:16 Urine WBC (Auto) 21-50 /hpf (0-5) H 09/02/23 22:16 Urine RBC (Auto) 0-2 /hpf (0-2) 09/02/23 22:16 U Hyaline Cast (Auto) 3-5 /lpf (0-2) H 09/02/23 22:16 U Epithel Cells (Auto) 6-10 /hpf (0-2) H 09/02/23 22:16 Urine Bacteria (Auto) None Seen (None Seen) 09/02/23 22:16 Salicylates < 3.0 mg/dl (3.0-30) L 09/02/23 22:20 Urine Opiates Screen Neg (Neg) 09/02/23 22:16 Ur Methadone, Qual Neg (Neg) 09/02/23 22:16 Urine Fentanyl Screen Neg (Neg) 09/02/23 22:16 Acetaminophen < 3 ug/ml (10-30) L 09/02/23 22:20 Urine Barbiturates Neg (Neg) 09/02/23 22:16 Ur Phencyclidine (PCP) Neg (Neg) 09/02/23 22:16 U Amphetamin/Meth Scrn Neg (Neg) 09/02/23 22:16 MDMA (Ecstasy) Screen Pos (Neg) H 09/02/23 22:16 U Benzodiazepines Scrn Neg (Neg) 09/02/23 22:16 Ur Cocaine Metabolite Neg (Neg) 09/02/23 22:16 U Marijuana (THC) Screen Neg (Neg) 09/02/23 22:16 Ethyl Alcohol mg/dL < 10.0 mg/dl (<10.0) 09/02/23 22:20 Code Status & VTE Plan Code Status Full code VTE Prophylaxis Plan VTE Prophylaxis will be ordered: Yes PG Care Time/CCT Total # of Minutes Spent Total Time Spent with Patient: Total time spent is greater than 50% in coordination of care (as documented) at patient's floor/unit and/or counseling patient: Coding Level of Care Code 03531 INT INP/OBS CARE 3/75MIN Diagnoses Agitation R45.1 Mixed Alzheimer's and vascular dementia G30.9; F01.50; F02.80 UTI (urinary tract infection) N30.00 Hematuria presence: without hematuria Urinary tract infection type: acute cystitis Essential hypertension I10 Hypertension type: essential hypertension Depression F32.9 Anxiety F41.9 (3) UTI (urinary tract infection) Hematuria presence: without hematuria Urinary tract infection type: acute cystitis Qualified Code(s): N30.00 - Acute cystitis without hematuria (4) Hypertension Hypertension type: essential hypertension Qualified Code(s): I10 - Essential (primary) hypertension
[2023-09-03] MEDS ORDERED: POLYETHYLENE (MIRALAX) 17 GM PACK PO PRN (03:01)
[2023-09-03] MEDS ORDERED: bisacodyL 10 MG SUPP PR PRN (03:01)
[2023-09-03] MEDS: DOCUSATE SODIUM 100 MG CAP PO SCH (09:16)
[2023-09-03] MEDS: METOPROLOL SUCC 25MG EXT REL TAB PO SCH (09:16)
[2023-09-03] MEDS: MULTIVITAMIN TAB PO SCH (09:16)
[2023-09-03] MEDS: CYANOCOBALAMIN (B-12) 500 MCG TABLET PO SCH (09:16)
[2023-09-03] MEDS: ASPIRIN 81 MG ECTAB PO SCH (09:16)
[2023-09-03] MEDS: BRIMONIDINE TARTRATE 0.2% 5ML OPB SCH (12:07)
--- NOTE | 2023-09-03 13:31 | Psychiatric Consultation ---
Date of Consultation September 03, 2023 Impression / Recommendations Impression 78 yo woman with a history of Alzheimer's and vascular dementia with increased agitation after a mess-up with her medications and transition from geriatric inpatient psychiatry at [facility] to a new personal assisted, [facility], three days ago and found to have UTI. Diagnostically consistent with possible encephalopathy/delirium from UTI superimposed on dementia with behavioral disturbance which worsened in context of missing her medications and transitioning to a new environment. Goal in dementia is to avoid medication management of behaviors if possible by maximizing non-pharmacologic strategies for behavioral management. However, given worsening agitation/aggression and previous improvement with antipsychotic medications reasonable to continue this. Note all antipsychotic medications c arry black box warning for increased risk of all-cause mortality in setting of dementia. Overall, I spent a total of 45 minutes with this case including review of chart records, review of labwork, direct evaluation of the patient at bedside, counseling the patient, discussion of the patient with the Nurse and with the hospitalist provider, discussion with the psychiatric liason during clinical r ounds and documentation in the electronic health record. (1) Mixed Alzheimer's and vascular dementia: (2) UTI (urinary tract infection): Hematuria presence: without hematuria Urinary tract infection type: acute cystitis Qualified Code(s): N30.00 - Acute cystitis without hematuria (3) Agitation: Plan -1-on-1 as needed -Continue medical workup to rule out and treat any underlying causes contributing to potential delirium, avoid or limit use of deliriogenic medications (benzodiazepines, opioids, anticholinergics) -Continue with delirium prevention measures: raising blinds during the day, closing at night, frequent re-orientation, contact with family/friends, explaining procedures/nursing care measures prior to physical contact, correct any hearing and visual impairments -Would restart prior to admission psychiatric medications: * escitalopram 10mg daily * Seroquel 25mg qafternoon and 50mg qdinner * Seroquel 25mg BID po prn for agitation/paranoia -Would discontinue trazodone 50mg HS for now given sedating effects of Seroquel at HS -For behavioral emergency: olanzapine 2.5 mg IM x 1 (DO NOT exceed 10mg per 24 hours, check EKG if IM dose required, NEVER co-administer with IM or IV benzodiazepines). Psych History Identifying Data 78 yo woman with a history of mixed Alzheimer's and vascular dementia, depression and anxiety admitted medically for agitation and UTI. Psychiatry consulted for "agitation reported by [facility]". Chief Complaint "Just trying to find out what's going on". History of Present Illness Yaquelin was brought to the hospital after reportedly wandering into another resident's room at [facility], the personal assisted where she has been living for the last two days. Reportedly became agitated when redirected after wandering. She was recently admitted to the geriatric psychiatry unit at [facility] for medication adjustments for 3 weeks after behavioral outburst at her previous personal assisted with improvement per daughter's report before being discharged to [facility] on 08/31/2023. She was also seen in the ED on 09/01/2023 after staff reported she had been irritable and more aggression but was also without her medication due to mixup with the mail order pharmacy. On arrival to hospital last evening she was noted to have UTI. Since admission last night there have been no agitated behaviors. In reviewing her psychiatric medications she has been prescribed trazodone, escitalopram, Seroquel and donepezil recently. Per admission H&P unclear if she has been getting these medications consistently. Allergies Allergy/AdvReac Type Severity Reaction Status Date / Time paroxetine [From Paxil] Allergy Verified 03/15/23 10:26 Home Medications Medication Instructions Recorded Confirmed Type latanoprost 0.005 % eye drops 1 drops ophthalmic (eye) QPM 09/17/18 09/03/23 History multivitamin (Daily Multi-Vitamin 1 tab PO DAILY 09/17/18 09/03/23 History tablet) simvastatin 40 mg tablet 40 mg PO DAILY #90 tabs 02/27/23 09/01/23 Rx brimonidine 0.2 % eye drops 1 drp ophthalmic (eye) BID #5 mL 03/15/23 09/03/23 Rx aspirin 81 mg tablet,delayed 81 mg PO DAILY #7 tabs 09/01/23 09/03/23 Rx release (Adult Low Dose Aspirin) atorvastatin 20 mg tablet 20 mg PO HS #7 tabs 09/01/23 09/03/23 Rx bisacodyl 10 mg rectal suppository 10 mg [place] DAILY PRN Constipation 09/01/23 09/03/23 History cyanocobalamin (vitamin B-12) 1,000 mcg PO DAILY 09/01/23 09/03/23 History 1,000 mcg tablet docusate sodium 100 mg capsule 100 mg PO BID #14 caps 09/01/23 09/03/23 Rx donepezil 5 mg tablet 5 mg PO HS #7 tabs 09/01/23 09/03/23 Rx escitalopram oxalate 10 mg tablet 10 mg PO DAILY #7 tabs 09/01/23 09/03/23 Rx lisinopril 20 mg tablet 20 mg PO DAILY #7 tabs 09/01/23 09/03/23 Rx metoprolol succinate 25 mg 25 mg PO DAILY #7 tabs 09/01/23 09/03/23 Rx tablet,extended release 24 hr polyethylene glycol 3350 17 gram 17 g PO DAILY 09/01/23 09/03/23 History oral powder packet quetiapine 25 mg tablet 25 mg PO QDL #7 tabs 09/01/23 09/03/23 Rx quetiapine 25 mg tablet (Seroquel) 25 mg PO BID PRN Anxiety #14 tabs 09/01/23 09/03/23 Rx quetiapine 50 mg tablet 50 mg PO HS #7 tabs 09/01/23 09/03/23 Rx trazodone 50 mg tablet 50 mg PO HS #7 tabs 09/01/23 09/03/23 Rx Patient History Medical History Hx of cardiac pacemaker Tinnitus Positional vertigo Irritable bowel syndrome Internal hemorrhoids Headache Glaucoma Diverticulosis Surgical History History of colonoscopy 04/30/2017 - no further routine screening necessary due to age S/P tubal ligation Family History Father Coronary heart disease Dyslipidemia Stroke Congestive heart failure History of permanent cardiac pacemaker placement Mother , age 83 Stroke Sister Parkinson disease Unknown Cerebral artery occlusion with cerebral infarction Aunt Parkinson disease Denies family history of Ovarian cancer Prostate cancer Breast cancer Lung cancer Colorectal cancer Social History Smoking Status: Never smoker Second Hand Exposure: No; Do You Dip or Chew Tobacco: No; Hx Alcohol Use: No Hx Substance Use: No Preferred Language: Ukrainian Communication Ability: Effective Visual Impairment: Limited Hearing Ability: Normal Life Trainer Required: No Beliefs That Will Affect Care: None marital status: / Current Living Situation: Alone Current Living Situation Comment: Lives at [facility]. current occupational status: retired How many Children do You have: 2 Other Information That Helps Us Care for You: No Feels Safe at Home: Yes Safety Concerns: Feels Safe At This Time Childhood Exposure to Second-Hand Smoke: No caffeine: Yes (drinks coffee daily ) Dental Care, Regularly: Yes Physical Activity Frequency: 3-4 Times per Week Physical Activity Frequency Comment: walks Seatbelt Use: always Sunscreen Use: No (does not go outside) Assistive Devices: Hospital Bed Physical Exam Psychiatric: Orientation: alert and oriented to person; + not oriented to place and + not oriented to time Eye Contact: good eye contact Speech: normal rate/rhythm/volume of speech (brief, some word finding difficulty at times) Affect: euthymic affect Mood: no depressed mood and no anxious mood Thought Process: + looseness of associations Insight: + severely impaired insight Judgment: + limited judgement Vital Signs (Past 24 Hours): Last Vital Signs Temp 36.6 C 09/03/23 07:21 Pulse 73 09/03/23 07:21 Resp 16 09/03/23 07:21 BP 143/59 H 09/03/23 07:21 Pulse Ox 94 09/03/23 07:21 O2 Del Method Room Air 09/03/23 07:57 Results & Data (PSY) Medications Administered Aspirin (Aspirin 81 Mg Ectab) 81 mg PO DAILY [facility] Stop: 10/03/23 08:59 Last Admin: 09/03/23 09:16 Dose: 81 mg Documented By: WERNER Brimonidine Tartrate (Brimonidine Tartrate 0.2% 5ml) 1 drops OPB BID NAYELI Stop: 10/03/23 08:59 Last Admin: 09/03/23 12:07 Dose: 1 drops Documented By: TIFFANI Cyanocobalamin (Cyanocobalamin (B-12) 500 Mcg Tablet) 1,000 mcg PO DAILY NAYELI Stop: 10/03/23 08:59 Last Admin: 09/03/23 09:16 Dose: 1,000 mcg Documented By: WERNER Docusate Sodium (Docusate Sodium 100 Mg Cap) 100 mg PO BID NAYELI Stop: 10/03/23 08:59 Last Admin: 09/03/23 09:16 Dose: 100 mg Documented By: WERNER Metoprolol Succinate (Metoprolol Succ 25mg Ext Rel Tab) 25 mg PO DAILY NAYELI Stop: 10/03/23 08:59 Last Admin: 09/03/23 09:16 Dose: 25 mg Documented By: WERNER Multivitamins (Multivitamin Tab) 1 tab PO DAILY [facility] Stop: 10/03/23 08:59 Last Admin: 09/03/23 09:16 Dose: 1 tab Documented By: WERNER Coding Level of Care Code 37070 IN/OBS CONSULT LVL 3,45M Diagnoses Mixed Alzheimer's and vascular dementia G30.9; F01.50; F02.80 UTI (urinary tract infection) N30.00 Hematuria presence: without hematuria Urinary tract infection type: acute cystitis Agitation R45.1
--- NOTE | 2023-09-03 19:41 | Hospitalist Progress Note ---
Date of Service September 03, 2023 Assessment & Plan (1) Mixed Alzheimer's and vascular dementia: Plan: Patient reportedly was wandering into another patient's room at [facility], and when redirected, became agitated, and she was then sent to the ED for assessment On presentation to ED, patient was not agitated, resting comfortably, and it is reported that [facility] is unwilling to accept the patient back. Psychiatry consulted Continue one-to-one observation as needed Continue medical workup to rule out and treat any underlying causes contributing to potential delirium, avoid or limit use of deliriogenic medications (benzodiazepines, opioids, anticholinergics) Continue with delirium prevention measures: raising blinds during the day, closing at night, frequent re-orientation, contact with family/friends, explaining procedures/nursing care measures prior to physical contact, correct any hearing and visual impairments Continue escitalopram 10mg daily Continue Seroquel 25mg qafternoon and 50mg qdinner Continue Seroquel 25mg BID po prn for agitation/paranoia Discontinue trazodone 50mg HS for now given sedating effects of Seroquel at HS For behavioral emergency: olanzapine 2.5 mg IM x 1 (DO NOT exceed 10mg per 24 hours, check EKG if IM dose required, NEVER co-administer with IM or IV benzodiazepines) (2) UTI (urinary tract infection): Plan: UA positive on admission Urine culture pending, continue to follow Continue ceftriaxone 2 g IV daily until urine culture sensitivities result Plan Ordered escitalopram, Seroquel, olanzapine Discontinue trazodone Reviewed psychiatry consult Chronic Stable Conditions: Hypertension - continue metoprolol Hyperlipidemia - continue atorvastatin CODE STATUS: Full code Admission and Anticipated Discharge Date Admission Date: September 03, 2023 Supervising Physician Co-Signing Physician Notes Attending Attestation - Chart reviewed, care plan d/w COLE Jain. I agree w/ the villagran components of her documentation. Migel Hill MD Subjective Patient seen and evaluated at bedside with one-to-one nurse in room. Obtaining any review of systems is extremely difficult due to patient's confusion from mixed Alzheimer's and vascular dementia. Patient appeared comfortable in bed. She had no complaints. Physical Exam Physical Exam: General: No acute distress, nondiaphoretic, well-developed, well-nourished. Skin: The skin was without rashes, erythema, edema, or bruising. Cardiac: Regular rate and rhythm without murmurs gallops or rubs. Pulm: Clear to auscultation bilaterally without wheezes, rales or rhonchi. No retractions or accessory muscle use. Abdominal: Soft, nontender, nondistended. Bowel sounds present. Neuro: Alert and oriented to person. Loose thought process. Severely impaired insight. Limited judgment. No focal neurological deficits. Results & Data Results & Data Vital Signs (Past 12 Hours) Vital Signs Temp Pulse Resp BP Pulse Ox O2 Del Method 09/03/23 15:58 37.0 C 70 16 134/68 96 Room Air 09/03/23 07:57 Room Air Laboratory Results Reviewed CBC Reviewed CMP Reviewed urine culture PG Care Time/CCT Total # of Minutes Spent Total Time Spent with Patient: Total time spent is greater than 50% in coordination of care (as documented) at patient's floor/unit and/or counseling patient: Coding Level of Care Code 77286 SUB INP/OBS CARE 3/50MIN Diagnoses Mixed Alzheimer's and vascular dementia G30.9; F01.50; F02.80 UTI (urinary tract infection) N30.00 Hematuria presence: without hematuria Urinary tract infection type: acute cystitis (2) UTI (urinary tract infection) Hematuria presence: without hematuria Urinary tract infection type: acute cystitis Qualified Code(s): N30.00 - Acute cystitis without hematuria
[2023-09-03] MEDS: ATORVASTATIN 20 MG TAB PO SCH (21:29)
[2023-09-03] MEDS: LATANOPROST 0.005% OP SOLN 2.5 ML BTL OPB SCH (21:30)
[2023-09-03] MEDS: QUEtiapine FUMARATE 25 MG TABLET PO SCH (21:31)
[2023-09-03] MEDS: cefTRIAXone SODIUM 2,000 MG/50 ML BAG IV SCH (21:34)
[2023-09-04 08:30] LABS: Hematocrit (blood only) 41.2 % (37.0-47.0); Hemoglobin 13.6 g/dl (12.0-16.0); Mean Corpuscular Volume 84.9 fL (80.0-100.0); Mean Platelet Volume 9.8 fL (9.4-12.4); Platelet Count 242 K/uL (130-400); RDW Coefficient of Variation 13.2 % (11.5-14.5); RDW Standard Deviation 41.1 fL (36.4-46.3); Red Blood Count 4.85 M/uL (4.20-5.40); White Blood Count 5.51 K/ul (4.8-10.8)
[2023-09-04] MEDS: ESCITALOPRAM OXALATE 10 MG TAB PO SCH (08:46)
[2023-09-04 08:47] LABS: BUN Creatinine Ratio 11.7 (10-20); Calcium 9.3 mg/dl (8.6-10.3); Creatinine Clr Calc Pharmacy 72.3 ml/min; Est GFR (African American) 101.2 ml/min; Est GFR (Non-African American) 87.3 ml/min; Potassium 4.4 mmol/L (3.5-5.1)
[2023-09-04] MEDS: ACETAMINOPHEN 325 MG TAB PO PRN (10:24)
[2023-09-04] MEDS: QUEtiapine FUMARATE 25 MG TABLET PO SCH (12:29)
--- NOTE | 2023-09-04 17:30 | Hospitalist Progress Note ---
Date of Service September 04, 2023 Assessment & Plan (1) Mixed Alzheimer's and vascular dementia: Plan: Patient reportedly was wandering into another patient's room at [facility], and when redirected, became agitated, and she was then sent to the ED for assessment - On presentation to ED, patient was not agitated, resting comfortably, and it is reported that [facility] is unwilling to accept the patient back. Psychiatry consulted - Continue one-to-one observation as needed - Continue medical workup to rule out and treat any underlying causes contributing to potential delirium, avoid or limit use of deliriogenic medications (benzodiazepines, opioids, anticholinergics) - Continue with delirium prevention measures: raising blinds during the day, closing at night, frequent re-orientation, contact with family/friends, explaining procedures/nursing care measures prior to physical contact, correct any hearing and visual impairments Continue escitalopram 10mg daily Continue Seroquel 25mg qafternoon and 50mg qdinner Continue Seroquel 25mg BID po prn for agitation/paranoia Discontinued trazodone 50mg HS for now given sedating effects of Seroquel at HS For behavioral emergency: olanzapine 2.5 mg IM x 1 (DO NOT exceed 10mg per 24 hours, check EKG if IM dose required, NEVER co-administer with IM or IV benzodiazepines) Referral has been made to [facility] for placement upon discharge (2) UTI (urinary tract infection): Plan: UA positive on admission Urine culture pending, continue to follow Continue ceftriaxone 2 g IV daily until urine culture sensitivities result Plan Updated patient's daughter, Roseann, via phone call Discussed discharge planning with case managementreferral has been made to [facility] Chronic Stable Conditions: Hypertension - continue metoprolol Hyperlipidemia - continue atorvastatin CODE STATUS: Full code Admission and Anticipated Discharge Date Admission Date: September 03, 2023 Subjective Patient seen and evaluated at bedside with one-to-one nurse in the room. No review of systems can be obtained as the patient is extremely confused from mixed Alzheimer's and vascular dementia. Nursing reported that blood was noted in the patient's brief. With assistance from EVENT SECURITY OFFICER, I did check the patient's brief and a scant amount of possibly blood-tinged discharge was noted. Nursing denies any blood in patient's urine or stool to their knowledge. Will continue to monitor, but no immediate intervention is required at this time. Physical Exam Physical Exam: General: No acute distress, nondiaphoretic, well-developed, well-nourished. Skin: The skin was without rashes, erythema, edema, or bruising. Cardiac: Regular rate and rhythm without murmurs gallops or rubs. Pulm: Clear to auscultation bilaterally without wheezes, rales or rhonchi. No retractions or accessory muscle use. Abdominal: Soft, nontender, nondistended. Bowel sounds present. Neuro: Alert and oriented to person only. Loose thought process. Severely impaired insight. Limited judgment. No focal neurological deficits. Results & Data Results & Data Vital Signs (Past 12 Hours) Vital Signs Temp Pulse Resp BP Pulse Ox O2 Del Method 09/04/23 14:50 36.9 C 77 16 156/80 H 96 Room Air 09/04/23 08:48 87 09/04/23 07:03 37.3 C 54 L 14 127/76 96 Room Air Laboratory Results Reviewed CBC Reviewed BMP Reviewed urine culture PG Care Time/CCT Total # of Minutes Spent Total Time Spent with Patient: Total time spent is greater than 50% in coordination of care (as documented) at patient's floor/unit and/or counseling patient: Coding Level of Care Code 69304 SUB INP/OBS CARE 3/50MIN Diagnoses Mixed Alzheimer's and vascular dementia G30.9; F01.50; F02.80 UTI (urinary tract infection) N30.00 Hematuria presence: without hematuria Urinary tract infection type: acute cystitis (2) UTI (urinary tract infection) Hematuria presence: without hematuria Urinary tract infection type: acute cystitis Qualified Code(s): N30.00 - Acute cystitis without hematuria
[2023-09-05] MEDS: OLANZapine 10 MG/2.1 ML SDV IM PRN (05:58)
[2023-09-05 11:01] LABS: Hematocrit (blood only) 37.7 % (37.0-47.0); Hemoglobin 12.9 g/dl (12.0-16.0); Mean Corpuscular Hemoglobin 28.5 pg (25.0-34.0); Mean Corpuscular Hgb Conc 34.2 g/dL (32.0-36.0); Mean Corpuscular Volume 83.4 fL (80.0-100.0); Mean Platelet Volume 9.8 fL (9.4-12.4); Platelet Count 247 K/uL (130-400); RDW Standard Deviation 39.7 fL (36.4-46.3); Red Blood Count 4.52 M/uL (4.20-5.40); White Blood Count 8.13 K/ul (4.8-10.8)
[2023-09-05 11:16] LABS: Calcium 9.3 mg/dl (8.6-10.3); Creatinine Clr Calc Pharmacy 72.3 ml/min; Est GFR (African American) 101.2 ml/min; Est GFR (Non-African American) 87.3 ml/min; Potassium 3.9 mmol/L (3.5-5.1)
[2023-09-05] MEDS: QUEtiapine FUMARATE 25 MG TABLET PO PRN (15:20)
[2023-09-05] MEDS: hydrOXYzine HCL IM SOLN 50 MG/ML 1 ML VIAL IM STA (16:03)
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
--- NOTE | 2023-09-06 07:58 | Hospitalist Progress Note ---
Date of Service September 06, 2023 Assessment & Plan (1) Mixed Alzheimer's and vascular dementia: Plan: Patient reportedly was wandering into another patient's room at [facility], and when redirected, became agitated, and she was then sent to the ED for assessment On presentation to ED, patient was not agitated, resting comfortably, and it is reported that [facility] is unwilling to accept the patient back. Psychiatry consulted and is following Continue one-to-one observation as needed hopeful to de-escalate soon Continue with delirium prevention measures: raising blinds during the day, closing at night, frequent re-orientation, contact with family/friends, explaining procedures/nursing care measures prior to physical contact, correct any hearing and visual impairments Continue escitalopram 10mg daily Continue Seroquel 25mg q afternoon and 50mg q dinner Continue Seroquel 25mg BID po prn for agitation/paranoia Discontinue trazodone 50mg HS For behavioral emergency: olanzapine 2.5 mg IM x 1 (DO NOT exceed 10mg per 24 hours, check EKG if IM dose required, (2) UTI (urinary tract infection): Plan: UA positive on admission Urine culture revealed alpha strep not Enterococcus since resurgence of delirium/metabolic encephalopathy, will treat as pathogen using amoxicillin 875 twice daily Plan Chronic Stable Conditions: Hypertension - continue metoprolol Hyperlipidemia - continue atorvastatin CODE STATUS: Full code Admission and Anticipated Discharge Date Admission Date: September 03, 2023 Subjective Patient was not compatible overnight she was cooperative with me she answers some questions but she is obviously only oriented x 2 Feffer no distress Physical Exam Physical Exam: Patient's oriented to person know she is in the hospital does not know which hospital None of the year or date cannot tell me her birthdate Cardiac exam is regular she is nonlabored breathing lungs are clear abdomen NABS Results & Data Results & Data Vital Signs (Past 12 Hours) Vital Signs Temp Pulse Resp BP Pulse Ox O2 Del Method 09/06/23 07:34 98.4 F 66 16 171/70 H 94 Room Air Laboratory Results Reviewed CBC reviewed chemistry PG Care Time/CCT Total # of Minutes Spent Total Time Spent with Patient: Total time spent is greater than 50% in coordination of care (as documented) at patient's floor/unit and/or counseling patient: Coding Level of Care Code 70037 SUB INP/OBS CARE 2/35MIN Diagnoses Mixed Alzheimer's and vascular dementia G30.9; F01.50; F02.80 UTI (urinary tract infection) N30.00 Hematuria presence: without hematuria Urinary tract infection type: acute cystitis (2) UTI (urinary tract infection) Hematuria presence: without hematuria Urinary tract infection type: acute cystitis Qualified Code(s): N30.00 - Acute cystitis without hematuria
[2023-09-06] MEDS: AMOXICILLIN 875 MG TAB PO SCH (08:57)
[2023-09-06 10:13] LABS: Hematocrit (blood only) 38.9 % (37.0-47.0); Hemoglobin 12.9 g/dl (12.0-16.0); Mean Corpuscular Hgb Conc 33.2 g/dL (32.0-36.0); Mean Corpuscular Volume 84.4 fL (80.0-100.0); Mean Platelet Volume 9.9 fL (9.4-12.4); Platelet Count 214 K/uL (130-400); RDW Coefficient of Variation 13.3 % (11.5-14.5); RDW Standard Deviation 40.9 fL (36.4-46.3); Red Blood Count 4.61 M/uL (4.20-5.40); White Blood Count 4.18 K/ul (4.8-10.8)
[2023-09-06 10:28] LABS: BUN Creatinine Ratio 11.8 (10-20); Calcium 9.1 mg/dl (8.6-10.3); Creatinine Clr Calc Pharmacy 63.8 ml/min; Est GFR (African American) 97.1 ml/min; Est GFR (Non-African American) 83.8 ml/min; Potassium 3.8 mmol/L (3.5-5.1)
[2023-09-07 08:05] LABS: Hematocrit (blood only) 38.6 % (37.0-47.0); Mean Corpuscular Hemoglobin 28.2 pg (25.0-34.0); Mean Corpuscular Hgb Conc 33.7 g/dL (32.0-36.0); Mean Corpuscular Volume 83.7 fL (80.0-100.0); Platelet Count 198 K/uL (130-400); RDW Coefficient of Variation 13.4 % (11.5-14.5); Red Blood Count 4.61 M/uL (4.20-5.40); White Blood Count 4.81 K/ul (4.8-10.8)
[2023-09-07 08:40] LABS: BUN Creatinine Ratio 7.4 (10-20); Calcium 8.6 mg/dl (8.6-10.3); Creatinine Clr Calc Pharmacy 63.8 ml/min; Est GFR (African American) 97.1 ml/min; Est GFR (Non-African American) 83.8 ml/min; Potassium 3.8 mmol/L (3.5-5.1)
[2023-09-07 13:52] LABS: MDA negative; MDEA negative; MDMA (Ecstasy) Urine, Confirm negative
--- NOTE | 2023-09-07 16:23 | Hospitalist Progress Note ---
Date of Service September 07, 2023 Assessment & Plan (1) Mixed Alzheimer's and vascular dementia: Plan: Patient reportedly was wandering into another patient's room at [facility], and when redirected, became agitated, and she was then sent to the ED for assessment On presentation to ED, patient was not agitated, resting comfortably, and it is reported that [facility] is unwilling to accept the patient back. Psychiatry consulted and is following Continue one-to-one observation as needed hopeful to de-escalate soon Continue with delirium prevention measures: raising blinds during the day, closing at night, frequent re-orientation, contact with family/friends, explaining procedures/nursing care measures prior to physical contact, correct any hearing and visual impairments Continue escitalopram 10mg daily Continue Seroquel 25mg q afternoon and 50mg q dinner Continue Seroquel 25mg BID po prn for agitation/paranoia Discontinue trazodone 50mg HS For behavioral emergency: olanzapine 2.5 mg IM x 1 (DO NOT exceed 10mg per 24 hours, check EKG if IM dose required, (2) UTI (urinary tract infection): Plan: UA positive on admission Urine culture revealed alpha strep not Enterococcus since resurgence of delirium/metabolic encephalopathy, will treat as pathogen using amoxicillin 875 twice daily Plan Chronic Stable Conditions: Hypertension - continue metoprolol Hyperlipidemia - continue atorvastatin CODE STATUS: Full code Admission and Anticipated Discharge Date Admission Date: September 03, 2023 Subjective Patient was agitated and restless earlier but during my encounter, she was fairly calm and composed. The nurse tells me that she most likely likes the female sitter that is in her room currently Review of Systems Review of Systems: All systems reviewed & are unremarkable except as noted in Subjective Physical Exam Physical Exam: General: Awake, conversant Heart: S1, S2/regular rate and rhythm, no murmur rubs or gallops Lungs: Clear to auscultation bilaterally. Normal effort Abdomen: Soft/nontender/nondistended. No hepatosplenomegaly Extremities: No clubbing/cyanosis. No edema Behavior: Appropriate, cooperative Results & Data Results & Data Vital Signs (Past 12 Hours) Vital Signs Temp Pulse Resp BP Pulse Ox O2 Del Method 09/07/23 10:40 36.8 C 61 20 127/66 09/07/23 09:10 36.9 C 79 16 168/81 H 95 Room Air 09/07/23 08:30 Room Air Laboratory Results Abnormal lab results 09/07/23 Range/Units 07:24 Sodium 135 L (136-145) mmol/L BUN 5 L (6-23) mg/dl BUN/Creatinine Ratio 7.4 L (10-20) PG Care Time/CCT Total # of Minutes Spent Total Time Spent with Patient: Total time spent is greater than 50% in coordination of care (as documented) at patient's floor/unit and/or counseling patient: Coding Level of Care Code 32812 SUB INP/OBS CARE 2/35MIN Diagnoses Mixed Alzheimer's and vascular dementia G30.9; F01.50; F02.80 UTI (urinary tract infection) N30.00 Hematuria presence: without hematuria Urinary tract infection type: acute cystitis (2) UTI (urinary tract infection) Hematuria presence: without hematuria Urinary tract infection type: acute cystitis Qualified Code(s): N30.00 - Acute cystitis without hematuria
--- NOTE | 2023-09-08 12:47 | Hospitalist Progress Note ---
Date of Service September 08, 2023 Assessment & Plan (1) Mixed Alzheimer's and vascular dementia: Plan: Patient reportedly was wandering into another patient's room at [facility], and when redirected, became agitated, and she was then sent to the ED for assessment On presentation to ED, patient was not agitated, resting comfortably, and it is reported that [facility] is unwilling to accept the patient back. Psychiatry consulted and is following Continue one-to-one observation as needed hopeful to de-escalate soon Continue with delirium prevention measures: raising blinds during the day, closing at night, frequent re-orientation, contact with family/friends, explaining procedures/nursing care measures prior to physical contact, correct any hearing and visual impairments Continue escitalopram 10mg daily Continue Seroquel 25mg q afternoon and 50mg q dinner Continue Seroquel 25mg BID po prn for agitation/paranoia Discontinue trazodone 50mg HS For behavioral emergency: olanzapine 2.5 mg IM x 1 (DO NOT exceed 10mg per 24 hours, check EKG if IM dose required, (2) UTI (urinary tract infection): Plan: UA positive on admission Urine culture revealed alpha strep not Enterococcus since resurgence of delirium/metabolic encephalopathy, will treat as pathogen using amoxicillin 875 twice daily Plan Chronic Stable Conditions: Hypertension - continue metoprolol Hyperlipidemia - continue atorvastatin CODE STATUS: Full code Admission and Anticipated Discharge Date Admission Date: September 03, 2023 Subjective Patient feels well. Denies chest pain or shortness of breath. Yesterday, the patient had made some suicidal statements to the nurses. But when I spoke to the patient, she did not recall anything she said and could not even organize her thoughts to say anything in support of killing herself or hurting herself. I did not think that this was a true suicidal statement. Review of Systems 2 Review of Systems: All systems reviewed & are unremarkable except as noted in Subjective Physical Exam Physical Exam: General: Awake, conversant Heart: S1, S2/regular rate and rhythm, no murmur rubs or gallops Lungs: Clear to auscultation bilaterally. Normal effort Abdomen: Soft/nontender/nondistended. No hepatosplenomegaly Extremities: No clubbing/cyanosis. No edema Behavior: Appropriate, cooperative Results & Data Results & Data Vital Signs (Past 12 Hours) Vital Signs Temp Pulse Resp BP Pulse Ox O2 Del Method 09/08/23 09:17 Room Air 09/08/23 08:21 Room Air 09/08/23 07:03 36.9 C 67 16 138/75 94 Room Air PG Care Time/CCT Total # of Minutes Spent Total Time Spent with Patient: Total time spent is greater than 50% in coordination of care (as documented) at patient's floor/unit and/or counseling patient: Coding Level of Care Code 37039 SUB INP/OBS CARE 2/35MIN Diagnoses Mixed Alzheimer's and vascular dementia G30.9; F01.50; F02.80 UTI (urinary tract infection) N30.00 Hematuria presence: without hematuria Urinary tract infection type: acute cystitis (2) UTI (urinary tract infection) Hematuria presence: without hematuria Urinary tract infection type: acute cystitis Qualified Code(s): N30.00 - Acute cystitis without hematuria
--- NOTE | 2023-09-09 10:35 | Hospitalist Progress Note ---
Date of Service September 09, 2023 Assessment & Plan (1) Mixed Alzheimer's and vascular dementia: Plan: Patient reportedly was wandering into another patient's room at [facility], and when redirected, became agitated, and she was then sent to the ED for assessment On presentation to ED, patient was not agitated, resting comfortably, and it is reported that [facility] is unwilling to accept the patient back. Psychiatry consulted and is following Continue one-to-one observation as needed hopeful to de-escalate soon Continue with delirium prevention measures: raising blinds during the day, closing at night, frequent re-orientation, contact with family/friends, explaining procedures/nursing care measures prior to physical contact, correct any hearing and visual impairments Continue escitalopram 10mg daily Continue Seroquel 25mg q afternoon and 50mg q dinner Continue Seroquel 25mg BID po prn for agitation/paranoia Discontinue trazodone 50mg HS For behavioral emergency: olanzapine 2.5 mg IM x 1 (DO NOT exceed 10mg per 24 hours, check EKG if IM dose required, (2) UTI (urinary tract infection): Plan: UA positive on admission Urine culture revealed alpha strep not Enterococcus since resurgence of delirium/metabolic encephalopathy, will treat as pathogen using amoxicillin 875 twice daily Plan Chronic Stable Conditions: Hypertension - continue metoprolol Hyperlipidemia - continue atorvastatin CODE STATUS: Full code Admission and Anticipated Discharge Date Admission Date: September 03, 2023 Subjective Patient feels well. Denies chest pain or shortness of breath. Sitter in the room did not raise any concern Review of Systems Review of Systems: All systems reviewed & are unremarkable except as noted in Subjective Physical Exam Physical Exam: General: Awake, conversant Heart: S1, S2/regular rate and rhythm, no murmur rubs or gallops Lungs: Clear to auscultation bilaterally. Normal effort Abdomen: Soft/nontender/nondistended. No hepatosplenomegaly Extremities: No clubbing/cyanosis. No edema Behavior: Appropriate, cooperative Results & Data Results & Data Vital Signs (Past 12 Hours) Vital Signs Temp Pulse Resp BP Pulse Ox O2 Del Method 09/09/23 07:31 36.5 C 64 16 147/74 H 94 Room Air PG Care Time/CCT Total # of Minutes Spent Total Time Spent with Patient: Total time spent is greater than 50% in coordination of care (as documented) at patient's floor/unit and/or counseling patient: Coding Level of Care Code 55676 SUB INP/OBS CARE MIN Diagnoses Mixed Alzheimer's and vascular dementia G30.9; F01.50; F02.80 UTI (urinary tract infection) N30.00 Hematuria presence: without hematuria Urinary tract infection type: acute cystitis (2) UTI (urinary tract infection) Hematuria presence: without hematuria Urinary tract infection type: acute cystitis Qualified Code(s): N30.00 - Acute cystitis without hematuria
[2023-09-09] MEDS: MELATONIN 3 MG TAB PO PRN (20:18)
--- NOTE | 2023-09-10 16:44 | Hospitalist Progress Note ---
Date of Service September 10, 2023 Assessment & Plan (1) Mixed Alzheimer's and vascular dementia: Plan: Patient reportedly was wandering into another patient's room at [facility], and when redirected, became agitated, and she was then sent to the ED for assessment On presentation to ED, patient was not agitated, resting comfortably, and it is reported that [facility] is unwilling to accept the patient back. Psychiatry consulted and is following Continue one-to-one observation as needed hopeful to de-escalate soon Continue with delirium prevention measures: raising blinds during the day, closing at night, frequent re-orientation, contact with family/friends, e xplaining procedures/nursing care measures prior to physical contact, correct any hearing and visual impairments Continue escitalopram 10mg daily Continue Seroquel 25mg q afternoon and 50mg q dinner Continue Seroquel 25mg BID po prn for agitation/paranoia Discontinue trazodone 50mg HS For behavioral emergency: olanzapine 2.5 mg IM x 1 (DO NOT exceed 10mg per 24 hours, check EKG if IM dose required, (2) UTI (urinary tract infection): Plan: UA positive on admission Urine culture revealed alpha strep not Enterococcus since resurgence of delirium/metabolic encephalopathy, will treat as pathogen using amoxicillin 875 twice daily. Last dose 09/10 Plan Chronic Stable Conditions: Hypertension - continue metoprolol Hyperlipidemia - continue atorvastatin CODE STATUS: Full code Admission and Anticipated Discharge Date Admission Date: September 03, 2023 Subjective Patient feels well. Denies chest pain or shortness of breath. Patient is requiring a sitter because she is very impulsive, per nurse. But she has not required IM or IV medications for agitation control over the weekend. Review of Systems Review of Systems: All systems reviewed & are unremarkable except as noted in Subjective Physical Exam Physical Exam: General: Awake, conversant Heart: S1, S2/regular rate and rhythm, no murmur rubs or gallops Lungs: Clear to auscultation bilaterally. Normal effort Abdomen: Soft/nontender/nondistended. No hepatosplenomegaly Extremities: No clubbing/cyanosis. No edema Behavior: Appropriate, cooperative PG Care Time/CCT Total # of Minutes Spent Total Time Spent with Patient: Total time spent is greater than 50% in coordination of care (as documented) at patient's floor/unit and/or counseling patient: Coding Level of Care Code 16134 SUB INP/OBS CARE Diagnoses Mixed Alzheimer's and vascular dementia G30.9; F01.50; F02.80 UTI (urinary tract infection) N30.00 Hematuria presence: without hematuria Urinary tract infection type: acute cystitis (2) UTI (urinary tract infection) Hematuria presence: without hematuria Urinary tract infection type: acute cystitis Qualified Code(s): N30.00 - Acute cystitis without hematuria
--- NOTE | 2023-09-11 13:58 | Psychiatric Progress Note ---
Date of Service September 11, 2023 Impression / Recommendations Impression 78 yo woman with a history of Alzheimer's and vascular dementia with increased agitation after a mess-up with her medications and transition from geriatric inpatient psychiatry at [facility] to a new personal skilled nursing, [facility], three days ago and found to have UTI. Diagnostically consistent with possible encephalopathy/delirium from UTI superimposed on dementia with behavioral disturbance which worsened in context of missing her medications and transitioning to a new environment. A: Patient's behavior is stable with no recent agitated behaviors. Behaviors appear well controlled on scheduled psychiatric medications. No indication of suicidal ideation, anxiety, pain, or distressing behaviors on exam. Pt appropriate for transfer back to home facility. Overall, I spent a total of 20 minutes with this case including review of chart records, review of medication history, direct evaluation of the patient at bedside, counseling the patient, discussion of the patient with the Nurse and with the hospitalist provider, discussion with the psychiatric liason during clinical rounds and documentation in the electronic health record. (1) Mixed Alzheimer's and vascular dementia: Plan -1-on-1 as needed -Continue home psychiatric medications * escitalopram 10mg daily * Seroquel 25mg qafternoon and 50mg qdinner * Seroquel 25mg BID po prn for agitation/paranoia Interval History Identifying Information 78 yo woman with a history of mixed Alzheimer's and vascular dementia, d epression and anxiety admitted medically for agitation and UTI. Psychiatry reconsulted for for general evaluation. Chief Complaint "doing better". Subjective Subjective Chart review indicates IM agitation medication was NOT required or given over past 3+ days. Pt is AO to self only. Unable to state location, year, month, current situation. She reports feeling well. Denies pain or anxiety. Tangential in speech and rambling. Appears bright and pleasant during conversation, laughing at times. Denies SI and says "of course not, that's a stupid question." No further concerns reported. Physical Exam Psychiatric Orientation: alert and oriented to person; + not oriented to place and + not oriented to time Eye Contact: good eye contact Speech: normal rate/rhythm/volume of speech (brief, some word finding difficulty at times) Affect: euthymic affect Mood: no depressed mood and no anxious mood Thought Process: + looseness of associations Insight: + severely impaired insight Judgment: + limited judgement Vital Signs (Past 24 Hours) Last Vital Signs Temp 36.7 C 09/11/23 08:50 Pulse 71 09/11/23 08:50 Resp 18 09/11/23 08:50 BP 150/80 H 09/11/23 08:50 Pulse Ox 97 09/11/23 08:50 O2 Del Method Room Air 09/11/23 08:50 Results & Data ([facility]) Current Inpatient Medications Current Inpatient Medications: Current Inpatient Medications Acetaminophen (Acetaminophen 325 Mg Tab) 650 mg PO Q4H PRN PRN Reason: pain/fever Stop: 10/03/23 03:00 Last Admin: 09/06/23 15:13 Dose: 650 mg Aspirin (Aspirin 81 Mg Ectab) 81 mg PO DAILY NAYELI Stop: 10/03/23 08:59 Last Admin: 09/11/23 08:24 Dose: 81 mg Atorvastatin Calcium (Atorvastatin 20 Mg Tab) 20 mg PO HS NAYELI Stop: 10/03/23 20:59 Last Admin: 09/10/23 20:06 Dose: 20 mg Bisacodyl (Bisacodyl 10 Mg Supp) 10 mg IN DAILY PRN PRN Reason: Constipation Stop: 10/03/23 03:00 Brimonidine Tartrate (Brimonidine Tartrate 0.2% 5ml) 1 drops OPB BID NAYELI Stop: 10/03/23 08:59 Last Admin: 09/11/23 08:26 Dose: 1 drops Cyanocobalamin (Cyanocobalamin (B-12) 500 Mcg Tablet) 1,000 mcg PO DAILY NAYELI Stop: 10/03/23 08:59 Last Admin: 09/11/23 08:24 Dose: 1,000 mcg Docusate Sodium (Docusate Sodium 100 Mg Cap) 100 mg PO BID NAYELI Stop: 10/03/23 08:59 Last Admin: 09/11/23 08:26 Dose: 100 mg Escitalopram Oxalate (Escitalopram Oxalate 10 Mg Tab) 10 mg PO QAM NAYELI Stop: 10/04/23 08:59 Last Admin: 09/11/23 08:25 Dose: 10 mg Latanoprost (Latanoprost 0.005% Op Soln 2.5 Ml Btl) 1 drops OPB QPM NAYELI Stop: 10/03/23 20:59 Last Admin: 09/10/23 20:06 Dose: 1 drops Melatonin (Melatonin 3 Mg Tab) 3 mg PO HS PRN PRN Reason: Sleep Stop: 10/09/23 20:11 Last Admin: 09/10/23 20:05 Dose: 3 mg Metoprolol Succinate (Metoprolol Succ 25mg Ext Rel Tab) 25 mg PO DAILY NAYELI Stop: 10/03/23 08:59 Last Admin: 09/11/23 11:40 Dose: Not Given Multivitamins (Multivitamin Tab) 1 tab PO DAILY NAYELI Stop: 10/03/23 08:59 Last Admin: 09/11/23 08:26 Dose: 1 tab Olanzapine (Olanzapine 10 Mg/2.1 Ml Sdv) 2.5 mg IM ONE PRN PRN Reason: Behavioral emergency Stop: 10/03/23 19:22 Last Admin: 09/05/23 05:58 Dose: 2.5 mg Polyethylene Glycol (Polyethylene (Miralax) 17 Gm Pack) 17 gm PO DAILY PRN PRN Reason: Constipation Stop: 10/03/23 03:00 Quetiapine Fumarate (Quetiapine Fumarate 25 Mg Tablet) 25 mg PO 1300 NAYELI Stop: 10/04/23 12:59 Last Admin: 09/09/23 16:27 Dose: 25 mg Quetiapine Fumarate (Quetiapine Fumarate 25 Mg Tablet) 50 mg PO QDD NAYELI Stop: 10/03/23 19:29 Last Admin: 09/10/23 15:38 Dose: 50 mg Quetiapine Fumarate (Quetiapine Fumarate 25 Mg Tablet) 25 mg PO BID PRN PRN Reason: Agitation/Paranoia Stop: 10/03/23 20:59 Last Admin: 09/11/23 09:14 Dose: 25 mg
--- NOTE | 2023-09-11 14:54 | Hospitalist Progress Note ---
Date of Service September 11, 2023 Assessment & Plan (1) Mixed Alzheimer's and vascular dementia: Plan: Patient reportedly was wandering into another patient's room at [facility], and when redirected, became agitated, and she was then sent to the ED for assessment On presentation to ED, patient was not agitated, resting comfortably, and it is reported that [facility] is unwilling to accept the patient back. Psychiatry consulted and is following Continue one-to-one observation as needed hopeful to de-escalate soon Continue with delirium prevention measures: raising blinds during the day, closing at night, frequent re-orientation, contact with family/friends, e xplaining procedures/nursing care measures prior to physical contact, correct any hearing and visual impairments Continue escitalopram 10mg daily Continue Seroquel 25mg q afternoon and 50mg q dinner Continue Seroquel 25mg BID po prn for agitation/paranoia Discontinue trazodone 50mg HS For behavioral emergency: olanzapine 2.5 mg IM x 1 (DO NOT exceed 10mg per 24 hours, check EKG if IM dose required, (2) UTI (urinary tract infection): Plan: UA positive on admission Urine culture revealed alpha strep not Enterococcus since resurgence of delirium/metabolic encephalopathy, treated with amoxicillin 875 twice daily. Completed course 09/10 Plan Chronic Stable Conditions: Hypertension - continue metoprolol Hyperlipidemia - continue atorvastatin CODE STATUS: Full code Admission and Anticipated Discharge Date Admission Date: September 03, 2023 Subjective Patient was a little uncooperative with me today. She did not want to sit in her bed and did not allow me to examine her. Review of Systems Review of Systems: All systems reviewed & are unremarkable except as noted in Subjective Physical Exam Physical Exam: General: Patient did not allow me to examine her. Behavior: Less cooperative today. Results & Data Results & Data Vital Signs (Past 12 Hours) Vital Signs Temp Pulse Resp BP Pulse Ox O2 Del Method 09/11/23 08:50 36.7 C 71 18 150/80 H 97 Room Air 09/11/23 08:15 Room Air PG Care Time/CCT Total # of Minutes Spent Total Time Spent with Patient: Total time spent is greater than 50% in coordination of care (as documented) at patient's floor/unit and/or counseling patient: Coding Level of Care Code 20203 SUB INP/OBS CARE 2/35MIN Diagnoses Mixed Alzheimer's and vascular dementia G30.9; F01.50; F02.80 UTI (urinary tract infection) N30.00 Hematuria presence: without hematuria Urinary tract infection type: acute cystitis (2) UTI (urinary tract infection) Hematuria presence: without hematuria Urinary tract infection type: acute cystitis Qualified Code(s): N30.00 - Acute cystitis without hematuria
--- NOTE | 2023-09-12 13:51 | Hospitalist Progress Note ---
Date of Service September 12, 2023 Assessment & Plan (1) Mixed Alzheimer's and vascular dementia: Plan: Patient reportedly was wandering into another patient's room at [facility], and when redirected, became agitated, and she was then sent to the ED for assessment On presentation to ED, patient was not agitated, resting comfortably, and it is reported that [facility] is unwilling to accept the patient back. Psychiatry consulted and is following Continue one-to-one observation as needed hopeful to de-escalate soon Continue with delirium prevention measures: raising blinds during the day, closing at night, frequent re-orientation, contact with family/friends, e xplaining procedures/nursing care measures prior to physical contact, correct any hearing and visual impairments Continue escitalopram 10mg daily Continue Seroquel 25mg q afternoon and 50mg q dinner Continue Seroquel 25mg BID po prn for agitation/paranoia Discontinue trazodone 50mg HS For behavioral emergency: olanzapine 2.5 mg IM x 1 (DO NOT exceed 10mg per 24 hours, check EKG if IM dose required, (2) UTI (urinary tract infection): Plan: UA positive on admission Urine culture revealed alpha strep not Enterococcus since resurgence of delirium/metabolic encephalopathy, treated with amoxicillin 875 twice daily. Completed course 09/10 Plan Chronic Stable Conditions: Hypertension - continue metoprolol Hyperlipidemia - continue atorvastatin CODE STATUS: Full code Likely discharge on Saturday 09/16, per case management Admission and Anticipated Discharge Date Admission Date: September 03, 2023 Subjective Patient feels well today. Denies chest pain or shortness of breath. Physical Exam Physical Exam: General: Awake, conversant Heart: S1, S2/regular rate and rhythm, no murmur rubs or gallops Lungs: Clear to auscultation bilaterally. Normal effort Abdomen: Soft/nontender/nondistended. No hepatosplenomegaly Extremities: No clubbing/cyanosis. No edema Behavior: Appropriate, cooperative Results & Data Results & Data Vital Signs (Past 12 Hours) Vital Signs Temp Pulse Resp BP Pulse Ox O2 Del Method 09/12/23 08:10 Room Air 09/12/23 07:26 36.9 C 70 16 145/72 H 94 Room Air PG Care Time/CCT Total # of Minutes Spent Total Time Spent with Patient: Total time spent is greater than 50% in coordination of care (as documented) at patient's floor/unit and/or counseling patient: Coding Level of Care Code 73973 SUB INP/OBS CARE Diagnoses Mixed Alzheimer's and vascular dementia G30.9; F01.50; F02.80 UTI (urinary tract infection) N30.00 Hematuria presence: without hematuria Urinary tract infection type: acute cystitis (2) UTI (urinary tract infection) Hematuria presence: without hematuria Urinary tract infection type: acute cystitis Qualified Code(s): N30.00 - Acute cystitis without hematuria
--- NOTE | 2023-09-13 14:48 | Hospitalist Progress Note ---
Date of Service September 13, 2023 Assessment & Plan (1) Mixed Alzheimer's and vascular dementia: Plan: Patient reportedly was wandering into another patient's room at [facility], and when redirected, became agitated, and she was then sent to the ED for assessment On presentation to ED, patient was not agitated, resting comfortably, and it is reported that [facility] is unwilling to accept the patient back. Psychiatry consulted and is following Continue one-to-one observation as needed hopeful to de-escalate soon Continue with delirium prevention measures: raising blinds during the day, closing at night, frequent re-orientation, contact with family/friends, e xplaining procedures/nursing care measures prior to physical contact, correct any hearing and visual impairments Continue escitalopram 10mg daily Continue Seroquel 25mg q afternoon and 50mg q dinner Continue Seroquel 25mg BID po prn for agitation/paranoia Discontinue trazodone 50mg HS For behavioral emergency: olanzapine 2.5 mg IM x 1 (DO NOT exceed 10mg per 24 hours, check EKG if IM dose required, (2) UTI (urinary tract infection): Plan: UA positive on admission Urine culture revealed alpha strep not Enterococcus since resurgence of delirium/metabolic encephalopathy, treated with amoxicillin 875 twice daily. Completed course 09/10 Plan Chronic Stable Conditions: Hypertension - continue metoprolol Hyperlipidemia - continue atorvastatin CODE STATUS: Full code Likely discharge on Saturday 09/16, per case management Admission and Anticipated Discharge Date Admission Date: September 03, 2023 Subjective Patient feels well. Denies chest pain or shortness of breath. No new complaints Review of Systems Review of Systems: All systems reviewed & are unremarkable except as noted in Subjective Physical Exam Physical Exam: General: Awake, conversant Heart: S1, S2/regular rate and rhythm, no murmur rubs or gallops Lungs: Clear to auscultation bilaterally. Normal effort Abdomen: Soft/nontender/nondistended. No hepatosplenomegaly Extremities: No clubbing/cyanosis. No edema Behavior: Appropriate, cooperative Results & Data Results & Data Vital Signs (Past 12 Hours) Vital Signs Temp Pulse Resp BP Pulse Ox O2 Del Method 09/13/23 08:15 Room Air 09/13/23 07:54 36.9 C 70 17 182/74 H 91 Room Air PG Care Time/CCT Total # of Minutes Spent Total Time Spent with Patient: Total time spent is greater than 50% in coordination of care (as documented) at patient's floor/unit and/or counseling patient: Coding Level of Care Code 29825 SUB INP/OBS CARE 2/35MIN Diagnoses Mixed Alzheimer's and vascular dementia G30.9; F01.50; F02.80 UTI (urinary tract infection) N30.00 Hematuria presence: without hematuria Urinary tract infection type: acute cystitis (2) UTI (urinary tract infection) Hematuria presence: without hematuria Urinary tract infection type: acute cystitis Qualified Code(s): N30.00 - Acute cystitis without hematuria
--- NOTE | 2023-09-14 14:20 | Hospitalist Progress Note ---
Date of Service September 14, 2023 Assessment & Plan (1) Mixed Alzheimer's and vascular dementia: Plan: Patient reportedly was wandering into another patient's room at [facility], and when redirected, became agitated, and she was then sent to the ED for assessment On presentation to ED, patient was not agitated, resting comfortably, and it is reported that [facility] is unwilling to accept the patient back. Psychiatry consulted and is following Continue one-to-one observation as needed hopeful to de-escalate soon Continue with delirium prevention measures: raising blinds during the day, closing at night, frequent re-orientation, contact with family/friends, e xplaining procedures/nursing care measures prior to physical contact, correct any hearing and visual impairments Continue escitalopram 10mg daily Continue Seroquel 25mg q afternoon and 50mg q dinner Continue Seroquel 25mg BID po prn for agitation/paranoia Discontinue trazodone 50mg HS For behavioral emergency: olanzapine 2.5 mg IM x 1 (DO NOT exceed 10mg per 24 hours, check EKG if IM dose required, (2) UTI (urinary tract infection): Plan: UA positive on admission Urine culture revealed alpha strep not Enterococcus since resurgence of delirium/metabolic encephalopathy, treated with amoxicillin 875 twice daily. Completed course 09/10 Plan Chronic Stable Conditions: Hypertension - continue metoprolol Hyperlipidemia - continue atorvastatin CODE STATUS: Full code Likely discharge on Saturday 09/16, per case management Admission and Anticipated Discharge Date Admission Date: September 03, 2023 Subjective Patient feels well. Accompanied by family in the room. No chest pain or shortness of breath Review of Systems Review of Systems: All systems reviewed & are unremarkable except as noted in Subjective Physical Exam Physical Exam: General: Awake, conversant Heart: S1, S2/regular rate and rhythm, no murmur rubs or gallops Lungs: Clear to auscultation bilaterally. Normal effort Abdomen: Soft/nontender/nondistended. No hepatosplenomegaly Extremities: No clubbing/cyanosis. No edema Behavior: Appropriate, cooperative Results & Data Results & Data Vital Signs (Past 12 Hours) Vital Signs Temp Pulse Resp BP Pulse Ox O2 Del Method 09/14/23 07:25 Room Air 09/14/23 07:25 36.9 C 68 18 166/76 H 95 Room Air PG Care Time/CCT Total # of Minutes Spent Total Time Spent with Patient: Total time spent is greater than 50% in coordination of care (as documented) at patient's floor/unit and/or counseling patient: Coding Level of Care Code 59276 SUB INP/OBS CARE 2/35MIN Diagnoses Mixed Alzheimer's and vascular dementia G30.9; F01.50; F02.80 UTI (urinary tract infection) N30.00 Hematuria presence: without hematuria Urinary tract infection type: acute cystitis (2) UTI (urinary tract infection) Hematuria presence: without hematuria Urinary tract infection type: acute cystitis Qualified Code(s): N30.00 - Acute cystitis without hematuria
--- NOTE | 2023-09-15 14:06 | Hospitalist Progress Note ---
Date of Service September 15, 2023 Assessment & Plan (1) Mixed Alzheimer's and vascular dementia: Plan: Patient reportedly was wandering into another patient's room at [facility], and when redirected, became agitated, and she was then sent to the ED for assessment On presentation to ED, patient was not agitated, resting comfortably, and it is reported that [facility] is unwilling to accept the patient back. Psychiatry consulted and is following Continue one-to-one observation as needed hopeful to de-escalate soon Continue with delirium prevention measures: raising blinds during the day, closing at night, frequent re-orientation, contact with family/friends, e xplaining procedures/nursing care measures prior to physical contact, correct any hearing and visual impairments Continue escitalopram 10mg daily Continue Seroquel 25mg q afternoon and 50mg q dinner Continue Seroquel 25mg BID po prn for agitation/paranoia Discontinue trazodone 50mg HS For behavioral emergency: olanzapine 2.5 mg IM x 1 (DO NOT exceed 10mg per 24 hours, check EKG if IM dose required, (2) UTI (urinary tract infection): Plan: UA positive on admission Urine culture revealed alpha strep not Enterococcus since resurgence of delirium/metabolic encephalopathy, treated with amoxicillin 875 twice daily. Completed course 09/10 Plan Chronic Stable Conditions: Hypertension - continue metoprolol Hyperlipidemia - continue atorvastatin CODE STATUS: Full code Likely discharge on Saturday 09/16, per case management Admission and Anticipated Discharge Date Admission Date: September 03, 2023 Subjective Patient feels well. Denies chest pain or shortness of breath Review of Systems Review of Systems: All systems reviewed & are unremarkable except as noted in Subjective Physical Exam Physical Exam: General: Awake, conversant Heart: S1, S2/regular rate and rhythm, no murmur rubs or gallops Lungs: Clear to auscultation bilaterally. Normal effort Abdomen: Soft/nontender/nondistended. No hepatosplenomegaly Extremities: No clubbing/cyanosis. No edema Behavior: Appropriate, cooperative Results & Data Results & Data Vital Signs (Past 12 Hours) Vital Signs Temp Pulse Resp BP Pulse Ox O2 Del Method 09/15/23 07:35 Room Air 09/15/23 07:09 36.6 C 60 18 127/65 96 Room Air PG Care Time/CCT Total # of Minutes Spent Total Time Spent with Patient: Total time spent is greater than 50% in coordination of care (as documented) at patient's floor/unit and/or counseling patient: Coding Level of Care Code 07787 SUB INP/OBS CARE 2MIN Diagnoses Mixed Alzheimer's and vascular dementia G30.9; F01.50; F02.80 UTI (urinary tract infection) N30.00 Hematuria presence: without hematuria Urinary tract infection type: acute cystitis (2) UTI (urinary tract infection) Hematuria presence: without hematuria Urinary tract infection type: acute cystitis Qualified Code(s): N30.00 - Acute cystitis without hematuria
--- NOTE | 2023-09-16 16:07 | Hospitalist Progress Note ---
Date of Service September 16, 2023 Assessment & Plan (1) Mixed Alzheimer's and vascular dementia: Plan: Patient reportedly was wandering into another patient's room at [facility], and when redirected, became agitated, and she was then sent to the ED for assessment On presentation to ED, patient was not agitated, resting comfortably, and it is reported that [facility] is unwilling to accept the patient back. Psychiatry consulted and is following Continue one-to-one observation as needed hopeful to de-escalate soon Continue with delirium prevention measures: raising blinds during the day, closing at night, frequent re-orientation, contact with family/friends, e xplaining procedures/nursing care measures prior to physical contact, correct any hearing and visual impairments Continue escitalopram 10mg daily Continue Seroquel 25mg q afternoon and 50mg q dinner Continue Seroquel 25mg BID po prn for agitation/paranoia Discontinue trazodone 50mg HS For behavioral emergency: olanzapine 2.5 mg IM x 1 (DO NOT exceed 10mg per 24 hours, check EKG if IM dose required, (2) UTI (urinary tract infection): Plan: UA positive on admission Urine culture revealed alpha strep not Enterococcus since resurgence of delirium/metabolic encephalopathy, treated with amoxicillin 875 twice daily. Completed course 09/10 Plan Chronic Stable Conditions: Hypertension - continue metoprolol Hyperlipidemia - continue atorvastatin CODE STATUS: Full code Likely discharge on Saturday 09/16, per case management Admission and Anticipated Discharge Date Admission Date: September 03, 2023 Subjective Patient feels well. Denies chest pain or shortness of breath. Review of Systems Review of Systems: All systems reviewed & are unremarkable except as noted in Subjective Physical Exam Physical Exam: General: Awake, conversant Heart: S1, S2/regular rate and rhythm, no murmur rubs or gallops Lungs: Clear to auscultation bilaterally. Normal effort Abdomen: Soft/nontender/nondistended. No hepatosplenomegaly Extremities: No clubbing/cyanosis. No edema Behavior: Appropriate, cooperative Results & Data Results & Data Vital Signs (Past 12 Hours) Vital Signs Temp Pulse Resp BP BP Pulse Ox O2 Del Method 09/16/23 15:03 36.7 C 63 18 171/75 H 96 Room Air 09/16/23 07:50 Room Air 09/16/23 06:51 36.6 C 66 16 166/67 H 94 Room Air PG Care Time/CCT Total # of Minutes Spent Total Time Spent with Patient: Total time spent is greater than 50% in coordination of care (as documented) at patient's floor/unit and/or counseling patient: Coding Level of Care Code 43773 SUB INP/OBS CARE 2/35MIN Diagnoses Mixed Alzheimer's and vascular dementia G30.9; F01.50; F02.80 UTI (urinary tract infection) N30.00 Hematuria presence: without hematuria Urinary tract infection type: acute cystitis (2) UTI (urinary tract infection) Hematuria presence: without hematuria Urinary tract infection type: acute cystitis Qualified Code(s): N30.00 - Acute cystitis without hematuria
[2023-09-17] MEDS ORDERED: QUEtiapine FUMARATE 25 MG TABLET PO SCH ×2
--- NOTE | 2023-09-17 11:20 | Discharge Summary ---
Date of Service September 17, 2023 Admission HPI Per Admitting Provider The patient is a 78-year-old female with a past medical history including agitation, mixed Alzheimer's and vascular dementia, hypertension, depression, anxiety, dyslipidemia, glaucoma, B12 deficiency and osteoporosis. She had recently been referred from a facility in [place], to [facility] in [place], and was noted as above to be agitated when she was redirected from wandering into another patient's room. Daughter's concerns are related to appropriateness of [facility] for her mother's level of care needed, and wishes for the patient to be placed at another facility. There was difficulty obtaining the patient's medications when she was transferred from [place] to [facility], and it is unclear at this time when she has taken her listed medications Admission Exam Per Admitting Provider The patient is awake, and attempts to respond to questions, well developed and well nourished, normocephalic and atraumatic, lying in bed and in no acute distress. HEENT--PERRL, EOMI, mucous membranes and oropharynx normal. Neck--supple. No JVD. No bruits. Thyroid normal, trachea midline, no adenopathy. Heart--normal S1 and S2. No murmurs, rubs or gallops. Lungs--clear bilaterally, no respiratory distress, no accessory muscle use. Abdomen--normal bowel sounds and soft. Nontender. Nondistended, no hernias or masses, no organomegaly. Extremities--no cyanosis or clubbing. No edema. There are good distal pulses b/l. Dermatologic--normal skin turgor, normal color, no abnormal lymph nodes, no rash. Neurologic--cranial nerves II through XII grossly intact. Rheumatologic--normal range of motion. Psychiatric--normal affect. Principal Diagnosis UTI Progressively declining dementia Discharge Exam General: Awake, conversant Heart: S1, S2/regular rate and rhythm, no murmur rubs or gallops Lungs: Clear to auscultation bilaterally. Normal effort Abdomen: Soft/nontender/nondistended. No hepatosplenomegaly Extremities: No clubbing/cyanosis. No edema Behavior: Appropriate, cooperative Discharge Data Allergies Allergy/AdvReac Type Severity Reaction Status Date / Time paroxetine [From Paxil] Allergy Verified 03/15/23 10:26 Consultations 09/03/23 00:04 ED Decision to Admit Stat 09/03/23 00:48 Consult Psychiatry Routine Hospital Course (1) Mixed Alzheimer's and vascular dementia: Patient reportedly was wandering into another patient's room at [facility], and when redirected, became agitated, and she was then sent to the ED for assessment On presentation to ED, patient was not agitated, resting comfortably, and it is reported that [facility] is unwilling to accept the patient back. Psychiatry consulted and is following Continue one-to-one observation as needed hopeful to de-escalate soon Continue with delirium prevention measures: raising blinds during the day, closing at night, frequent re-orientation, contact with family/friends, explaining procedures/nursing care measures prior to physical contact, correct any hearing and visual impairments Continue escitalopram 10mg daily Continue Seroquel 25mg q afternoon and 50mg q dinner Continue Seroquel 25mg BID po prn for agitation/paranoia Discontinue trazodone 50mg HS (2) UTI (urinary tract infection): UA positive on admission Urine culture revealed alpha strep not Enterococcus since resurgence of delirium/metabolic encephalopathy, treated with amoxicillin 875 twice daily. Completed course 09/10 Plan Chronic Stable Conditions: Hypertension - continue metoprolol Hyperlipidemia - continue atorvastatin CODE STATUS: Full code Discharge today Total Time Total Time Spent Total Time Spent (In Minutes): 35 Discharge Plan Discharge Items Patient Disposition: [facility] Reason For Visit: UTI, ALTERED MENTAL STATUS Discharge Diagnosis: UTI Progressively declining dementia Activity: Resume your previous activity Non-emergency contact: Primary Care Provider Call non-emergency contact if: you have any medication questions and your symptoms worsen Follow-up/Referrals: Benjamin Gomez DO [Primary Care Provider] - Diet: Heart Healthy Addtl Attending Provider Instructions: Advised to follow-up with PCP in 1 week Pending Studies at Discharge: No Stand-Alone Forms: [employer], Smoking Cessation Skilled Items Patient informed of condition?: Yes DNR: No Discharge Level of Care: Other Communicable Disease: No Discharge Prognosis: Stable Lines: None Urinary Catheter: No Medications and DC Order Prescriptions: Continued brimonidine 0.2 % drops 1 drp ophthalmic (eye) BID Qty: 5 3RF Rx Instructions: one drop both eyes twice a day latanoprost 0.005 % drops 1 drops OP QPM Rx Instructions: one drop both eyes every evening multivitamin [Daily Multi-Vitamin] tablet 1 tab PO DAILY atorvastatin 20 mg Tablet 20 mg PO HS Qty: 7 0RF escitalopram oxalate 10 mg Tablet 10 mg PO DAILY Qty: 7 0RF aspirin [Adult Low Dose Aspirin] 81 mg Tablet,Delayed Release (Dr/Ec) 81 mg PO DAILY Qty: 7 0RF docusate sodium 100 mg Capsule 100 mg PO BID Qty: 14 0RF donepezil 5 mg Tablet 5 mg PO HS Qty: 7 0RF quetiapine 25 mg Tablet 25 mg PO QDL Qty: 7 0RF quetiapine 50 mg Tablet 50 mg PO HS Qty: 7 0RF Rx Instructions: GIVE IN ADDITION TO 25 MG AT LUNCH quetiapine [Seroquel] 25 mg Tablet 25 mg PO BID PRN (Reason: Anxiety) Qty: 14 0RF metoprolol succinate 25 mg Tablet Extended Release 24 Hr 25 mg PO DAILY Qty: 7 0RF polyethylene glycol 3350 17 gram Powder In Packet 17 g PO DAILY cyanocobalamin (vitamin B-12) 1,000 mcg Tablet 1,000 mcg PO DAILY bisacodyl 10 mg Suppository [address] DAILY PRN (Reason: Constipation) lisinopril 20 mg Tablet 20 mg PO DAILY Qty: 7 0RF Discontinued simvastatin 40 mg tablet 40 mg PO DAILY Qty: 90 3RF trazodone 50 mg Tablet 50 mg PO HS Qty: 7 0RF Discharge Orders: Discharge Order (Routine); Ordered 09/17/23 Ordered By: Aby Faulkner Admission Data Admit Date/Time: 09/03/23 00:48 Attending Provider: Aby Faulkner Admit Provider: Art [address] Primary Care Provider: Benjamin Gomez Other Providers: Evita Mairo; Carlyle Parker; Jack Parks Jr; Bia Nunez; Hemalatha Ruvalcaba; Joaquin Krishnamurthy; Art [address] Other Interventions: Discharge Summary Assessment (RN) Last Done: 09/17/23 12:04 Coding Level of Care Code 27311 INP/OBS DISCH >30 MIN Diagnoses Mixed Alzheimer's and vascular dementia G30.9; F01.50; F02.80 UTI (urinary tract infection) N30.00 Hematuria presence: without hematuria Urinary tract infection type: acute cystitis
== END 2023-09-17 14:30 | disposition home or self-care (01) | DRG 689 ==
LOC: ED 21:38 → SUATTDRO 09-03 00:48 → 3N 09-03 00:48